=== PATIENT | female | born 1940 | race Caucasian/White ===

== ENCOUNTER 2018-08-01 10:43 | Inpatient (IN) ==
[2018-08-01] MEDS ORDERED: ZOFRAN IV ONE (11:41)
[2018-08-01] MEDS ORDERED: MORPHINE IV ONE (11:41)
[2018-08-01] MEDS ORDERED: NS 1,000 ML IV ONE (11:41)
--- NOTE | 2018-08-01 12:03 | Diag Imaging Result Doc PS360 ---
EXAM: CHEST-PORTABLE 08/01/2018 HISTORY: weakness TECHNIQUE: AP portable at 1149 COMMENT: There is atelectatic appearing opacity in the medial left lower lobe which was not apparent on 02/08/2016. There are linear fibrotic opacities present on the left which were present previously as well as the nodular opacity in the left upper lobe. IMPRESSION: New atelectasis left lower lobe. Electronically signed by Tyrell Fowler 08/01/2018 12:00 PM
[2018-08-01 12:14] LABS: BASO# 0.05 X1000 (0.0-0.2); BASO% 0.5 % (0.0-0.8); EOS# 0.09 X1000 (0.0-0.7); EOS% 0.9 % (0.0-10.0); HEMATOCRIT 30.1 % (37.0-47.0); HEMOGLOBIN 9.2 g/dL (12.0-16.0); IMM GRAN# 0.04 X1000 (0.0-0.04); IMM GRAN% 0.4 % (0.0-0.5); LYMPH# 1.09 X1000 (1.2-3.4); LYMPH% 10.5 % (20.5-51.1); MCH 30.3 PG (27-31); MCHC 30.6 g/dL (33-37); MONO# 1.38 X1000 (0.11-0.59); MONO% 13.2 % (1.7-9.3); MPV 9.3 FL (7.4-10.4); NEUT# 7.78 X1000 (1.4-6.5); NEUT% 74.5 % (42.2-75.2); PLT 509 X1000 (130-400); RBC 3.04 XMIL (4.2-5.4); RDW 12.7 % (11.5-14.5); WBC 10.43 X1000 (4.8-10.8)
[2018-08-01 12:26] LABS: ALBUMIN 3.5 g/dL (3.5-5.0); CALCIUM 8.7 mg/dL (8.8-10.2); CREATININE 1.3 mg/dL (0.5-0.9); POTASSIUM 4.2 mmol/L (3.5-5.1); TOTAL BILIRUBIN 0.2 mg/dL (0.20-1.00); TOTAL PROTEIN 6.9 g/dL (6.3-8.3)
--- NOTE | 2018-08-01 12:38 | EKG Report ---
Test Performed on : 08/01/2018 10:54:16 AM Test Reason : weakness Blood Pressure : / mmHG Vent. Rate : 068 BPM Atrial Rate : 068 BPM P-R Int : 230 ms QRS Dur : 078 ms QT Int : 402 ms P-R-T Axes : 073 001 -02 degrees QTc Int : 427 ms Sinus rhythm. with 1st degree AV block. Septal infarct , age undetermined Abnormal ECG When compared with ECG of 08-FEB-2016 09:19, AR interval has increased Septal infarct is now present Unconfirmed Result
[2018-08-01 12:43] LABS: URINE SOURCE CATH
[2018-08-01 12:43] LABS: INR 1.04; PROTIME 14.4 Seconds (11.0-16.0)
[2018-08-01 12:45] LABS: PTT 32.3 Seconds (22.3-41.8)
[2018-08-01 12:48] LABS: BILIRUBIN URINE NEGATIVE (NEGATIVE); BLOOD URINE NEGATIVE (NEGATIVE); COLOR YELLOW; GLUCOSE URINE NEGATIVE (NEGATIVE); KETONE URINE NEGATIVE (NEGATIVE); LEUKOCYTES URINE NEGATIVE (NEGATIVE); NITRITE URINE NEGATIVE (NEGATIVE); PROTEIN URINE TRACE mg/dL (NEGATIVE); SP GRAVITY URINE 1.008; TURBIDITY URINE CLEAR (CLEAR); UR EPITHELIAL CELLS <10 /HPF (<10); URINE BACTERIA NEGATIVE /HPF; URINE RBC <10 /HPF (<10); URINE WBC <10 /HPF (<10); UROBILINOGEN URINE NORMAL (NORMAL)
--- NOTE | 2018-08-01 14:01 | Diag Imaging Result Doc PS360 ---
EXAM: CT HEAD W/O CONTRAST 08/01/2018 HISTORY: weakness, near syncope on eliquis TECHNIQUE: This exam was performed using automated exposure control, adjustment of mA or kV according to patient size, and/or use of iterative reconstruction technique. COMMENT: There are calcifications in the globus pallidus and the right cerebellar hemisphere near the middle cerebellar peduncle and to lesser extent on the left side of the cerebellum in the same location. There are no previous studies available for comparison. There is no evidence of acute bleed or abnormal extra-axial fluid collection. There are calcifications in the internal carotid arteries bilaterally. There is a suprasellar soft tissue density mass on the left side adjacent to the internal carotid artery measuring 11 x 20 x 16 mm. This may represent an aneurysm. Further evaluation with MRI may be desirable. There is encephalomalacia present in the right occipital lobe. There is otherwise no evidence of mass effect. The visualized paranasal sinuses are clear. The calvarium is intact. IMPRESSION: No evidence of acute bleed. Left suprasellar mass possibly representing an aneurysm of the internal carotid artery. Electronically signed by Tyrell Fowler 08/01/2018 1:59 PM
--- NOTE | 2018-08-01 14:13 | Diag Imaging Result Doc PS360 ---
EXAM: CT ANGIOGRAM ABDOMEN 08/01/2018 HISTORY: bilateral LE weakness, evall for AAA/dissection TECHNIQUE: This exam was performed using automated exposure control, adjustment of mA or kV according to patient size, and/or use of iterative reconstruction technique. COMMENT: The current examination is compared with the previous study of 02/08/2016. 3-D MIPS were performed. There is bronchiectasis and fibrosis in both lower lobes. There are two separate nodules in the left adrenal gland which were also present at the time the previous study. There are multiple renal cysts. There has been cholecystectomy. There is no evidence of abdominal aortic aneurysm or dissection. The mesenteric and renal arteries are patent. There is some heavy calcification of the ostium of the left renal artery. There is a fairly large amount of stool in the sigmoid colon. There is diverticulosis without definite diverticulitis. There is stool throughout the transverse colon. There is marked disc bulge at the L2-3 level producing a moderate degree of spinal stenosis. There may be protrusion of the nucleus pulposis on the right. There is posterior osteophyte formation at the L5-S1 level. IMPRESSION: No evidence of abdominal aortic aneurysm or dissection. Both common, external iliac, common femoral arteries are patent. Degenerative disc disease in the lumbar spine particularly at L2-3 with moderate spinal stenosis. Electronically signed by Tyrell Fowler 08/01/2018 2:10 PM
--- NOTE | 2018-08-01 15:47 | PROVIDER DOCUMENTATION ---
This chart was entered by Kizzy Rodarte Scribe, acting as scribe for Pola Haynes MD. HPI-Musculoskeletal Pain/Inj - GENERAL Chief Complaint: Extremity Pain Stated Complaint: GENERALIZED WEAKNESS Time Seen by Provider: 08/01/18 11:07 Source: patient, EMS - HX OF PRESENT ILLNESS-MUSKULOSKELTAL Nature of Presenting Problem: 78 yowf presents to the ed with c/o rt leg pain. pt sts last night she slept in her recliner and this am she had a hard time getting up. once up she went to the toilet using her walker and sat down to urinate. pt once she was done and saw she could not get up. pt has noted weakness on exam in BLE and non pitting 4 + edema to BLE. pt has hx of clots and sts is on blood thinners now. pt lso c/o abdominal pain suprapubic RLQ and LLQ and sts has not been urinationg as much as she normally does Quality of Pain: reports: fullness (heaviness) Severity in ED: moderate Onset/Duration: this morning Timing: still present Modifying Factors: improves with: immobilization. worse with: movement, palpation Any recent injury?: No Locality of Occurance: Home Similar Symptoms Previously?: Yes Recently seen or treated by another doctor?: No Review of Systems - Adult - REVIEW OF SYSTEMS - ADULT Constitutional: denies: chills, fever Eyes: denies: blurred vision, double vision Ears, Nose, Mouth & Throat: reports: no symptoms reported Cardiovascular: denies: chest pain, palpitations Respiratory: reports: no symptoms reported Gastrointestinal: reports: see HPI, abdominal pain. denies: diarrhea, nausea, vomiting Genitourinary: reports: see HPI, urinary retention Musculoskeletal: reports: see HPI, joint pain, muscle weakness (BLE edema), other (BLE edema 4+) Integumentary: reports: no symptoms reported Neurological: denies: dizziness/vertigo, headache/migraines, slurred speech Psychiatric: reports: no symptoms reported Endocrine: reports: no symptoms reported Hematologic/Lymphatic: reports: see HPI, blood clots, easy bruising Allergic/Immunologic: reports: no symptoms reported All Other Systems: Reviewed and Negative Past History - Adult - PAST MEDICAL HISTORY-ADULT Review of Records: reports: Old Records Reviewed, Nursing Assessment Review, Medications Reviewed, Social history reviewed & non-contributory. 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 Other Conditions: reports: denies history - PRIOR SURGERIES/PROCEDURES Surgical/Procedure History: reports: cholecystectomy, hysterectomy - IMMUNIZATION STATUS Childhood Immunizations: See Nurse Assessment Flu Vaccine: See Nurse Assessment - FAMILY HISTORY Family History: reviewed, not pertinent - SOCIAL HISTORY Smoking: denies Substance Use: denies Alcohol Use Frequency: never Living Situation: alone Physical Exam-Injury Related - Physical Exam-Injury Related Initial Vital Signs Reviewed: Yes General Appearance: alert, mild distress, obese Eyes: PERRL/EOMI, pink conjunctivae Head, Ears, Nose, Mouth & Throat: moist mucous membranes, normal ENT inspection Neck: non-tender, full range of motion, normal inspection Respiratory: chest non-tender, lungs clear, normal breath sounds Cardiovascular: normal peripheral pulses, regular rate, rhythm Chest/Breast: deferred Abdominal Exam: normal bowel sounds, soft, distended, guarding, tenderness ( suprapubic RLQ and LLQ), other (well healed scar from past sx) Female Genitalia/Pelvic Exam: deferred Rectal Exam: deferred Hemoccult Exam: deferred Lymphatic: no adenopathy Back Exam: normal inspection, no CVA tenderness, no vertebral tenderness Extremity: pelvis stable, erythema (BUE), pedal edema, swelling (BLE), tenderness (RLE), other (pt has BLE weakness). negative: normal gait, deformity Integumentary: normal color, warm/dry Neurologic: motor weakness (BLE). negative: facial droop, focal weakness, sensory deficit Psych/Mental Status: normal mood/affect, normal thought content, normal thought process, oriented x 3 - Glascow Coma Score Best Eye Response (Weld): (4) open spontaneously Best Verbal Response (Carl): (5) oriented Best Motor Response (Weld): (6) obeys commands Carl Total: 15 Progress - PLAN OF CARE/RESULTS Progress/Plan/Lab Results: Vital Signs - 8 hr 08/01/18 10:47 08/01/18 13:35 08/01/18 14:02 Temperature 98.9 F Pulse Rate 69 74 65 Respiratory Rate 18 27 H 15 Blood Pressure 140/71 137/69 130/67 O2 Sat by Pulse Oximetry 97 97 96 08/01/18 12:33 Influenza Screen - Final Nasopharyngeal Laboratory Results - last 24 hr 08/01/18 08/01/18 08/01/18 10:55 10:55 10:55 WBC 10.43 RBC 3.04 L Hgb 9.2 L Hct 30.1 L MCV 99.0 MCH 30.3 MCHC 30.6 L RDW Std Deviation 12.7 Plt Count 509 H MPV 9.3 Immature Gran % (Auto) 0.4 Neut % (Auto) 74.5 Lymph % (Auto) 10.5 L [place] % (Auto) 13.2 H Eos % (Auto) 0.9 Baso % (Auto) 0.5 Immature Gran # (Auto) 0.04 Neut # (Auto) 7.78 H Lymph # (Auto) 1.09 L [place] # (Auto) 1.38 H Eos # (Auto) 0.09 Baso # (Auto) 0.05 PT INR PTT (Actin FS) Sodium 139 Potassium 4.2 Chloride 99 Carbon Dioxide 25 Anion Gap 15 BUN 29 H Creatinine 1.3 H Estimated GFR/1.73 m2 40 BUN/Creatinine Ratio 22 Glucose 210 H POC Glucose Calculated Osmolality 290 Calcium 8.7 L Magnesium 2.0 Total Bilirubin 0.20 AST 10 ALT 7 L Alkaline Phosphatase 132 H Creatine Kinase 32 Troponin T Sqy-G-Flzottyfelf Pept Total Protein 6.9 Albumin 3.5 Globulin 3.4 Albumin/Globulin Ratio 1.0 Plasma Lactate TSH 1.70 Urine Source Urine Color Urine Turbidity Urine pH Ur Specific Pierson Urine Protein Ur Glucose (Stick) Ur Ketones (Stick) Urine Blood Urine Nitrite Urine Bilirubin Urobilinogen Dipstick Urine Leukocytes Urine WBC (Auto) Urine RBC (Auto) U Epithel Cells (Auto) Urine Bacteria (Auto) 08/01/18 08/01/18 08/01/18 10:55 10:55 10:55 WBC RBC Hgb Hct MCV MCH MCHC RDW Std Deviation Plt Count MPV Immature Gran % (Auto) Neut % (Auto) Lymph % (Auto) [place] % (Auto) Eos % (Auto) Baso % (Auto) Immature Gran # (Auto) Neut # (Auto) Lymph # (Auto) [place] # (Auto) Eos # (Auto) Baso # (Auto) PT 14.4 INR 1.04 PTT (Actin FS) 32.3 Sodium Potassium Chloride Carbon Dioxide Anion Gap BUN Creatinine Estimated GFR/1.73 m2 BUN/Creatinine Ratio Glucose POC Glucose Calculated Osmolality Calcium Magnesium Total Bilirubin AST ALT Alkaline Phosphatase Creatine Kinase Troponin T Kjw-M-Cdwjylmufxy Pept 330 Total Protein Albumin Globulin Albumin/Globulin Ratio Plasma Lactate 1.1 TSH Urine Source Urine Color Urine Turbidity Urine pH Ur Specific [place]erson Urine Protein Ur Glucose (Stick) Ur Ketones (Stick) Urine Blood Urine Nitrite Urine Bilirubin Urobilinogen Dipstick Urine Leukocytes Urine WBC (Auto) Urine RBC (Auto) U Epithel Cells (Auto) Urine Bacteria (Auto) 08/01/18 08/01/18 08/01/18 10:55 12:25 12:32 WBC RBC Hgb Hct MCV MCH MCHC RDW Std Deviation Plt Count MPV Immature Gran % (Auto) Neut % (Auto) Lymph % (Auto) [place] % (Auto) Eos % (Auto) Baso % (Auto) Immature Gran # (Auto) Neut # (Auto) Lymph # (Auto) [place] # (Auto) Eos # (Auto) Baso # (Auto) PT INR PTT (Actin FS) Sodium Potassium Chloride Carbon Dioxide Anion Gap BUN Creatinine Estimated GFR/1.73 m2 BUN/Creatinine Ratio Glucose POC Glucose 205 H Calculated Osmolality Calcium Magnesium Total Bilirubin AST ALT Alkaline Phosphatase Creatine Kinase Troponin T 0.016 Zja-R-Ptkunnizzhd Pept Total Protein Albumin Globulin Albumin/Globulin Ratio Plasma Lactate TSH Urine Source CATH Urine Color YELLOW Urine Turbidity CLEAR Urine pH 8.0 Ur Specific [place] 1.008 Urine Protein TRACE A Ur Glucose (Stick) NEGATIVE Ur Ketones (Stick) NEGATIVE Urine Blood NEGATIVE Urine Nitrite NEGATIVE Urine Bilirubin NEGATIVE Urobilinogen Dipstick NORMAL Urine Leukocytes NEGATIVE Urine WBC (Auto) <10 Urine RBC (Auto) <10 U Epithel Cells (Auto) <10 Urine Bacteria (Auto) NEGATIVE Orders Category Date Time Status Bladder Scan and Record Result ORDERED Care 08/01/18 11:37 Active Finger Stick Blood Sugar (ED) DIRECTED Care 08/01/18 11:37 Active Nursing- Obtain EKG once Care 08/01/18 11:40 Active Straight Catheterization ORDERED Care 08/01/18 11:37 Active CHEST-PORTABLE [RAD] Stat Exams 08/01/18 11:[address] HEAD W/O CONTRAST [CT] Stat Exams 08/01/18 11:39 Completed CTA [CT ANGIOGRAM ABDOMEN] [CT] Stat Exams 08/01/18 11:40 Completed BLOOD CULTURE [BLDCUL] Stat Lab 08/01/18 14:55 Received CBC WITH ELECTRONIC DIFF [HEME] Stat Lab 08/01/18 10:55 Completed CK PROFILE [SP CHEM] Stat Lab 08/01/18 10:55 Completed COMPREHENSIVE METABOLIC PANEL [CHEM] Stat Lab 08/01/18 10:55 Completed INFLUENZA SCREEN A/B Stat Lab 08/01/18 12:33 Completed LACTATE, PLASMA [CHEM] Stat Lab 08/01/18 10:55 Completed MAGNESIUM [CHEM] Stat Lab 08/01/18 10:55 Completed PRO B-NATRIURETIC PEPTIDE Stat Lab 08/01/18 10:55 Completed PROTIME WITH INR [COAG] Stat Lab 08/01/18 10:55 Completed PTT [COAG] Stat Lab 08/01/18 10:55 Completed TROPONIN T Stat Lab 08/01/18 10:55 Completed TSH Stat Lab 08/01/18 10:55 Completed URINALYSIS W/POSS RFLX CULT [URINALYSIS] Stat Lab 08/01/18 12:25 Completed 0.9% Sodium Chloride Inj [Ns] 1,000 ml Med 08/01/18 11:41 Active IV 75 mls/hr Morphine Med 08/01/18 11:41 Discontinued 2 mg IV NOW ONE Ondansetron [Zofran] Med 08/01/18 11:41 Discontinued 4 mg IV NOW ONE EKG [EKG] Stat Ther 08/01/18 11:37 Draft Result Diagrams: 08/01/18 10:55 08/01/18 10:55 - REASSESSMENT Reassessment #1 Time Reassessed: 11:51 (pt is resting in bed with daughter at bedside) Status: unchanged - EKG 1 Time of EKG reading by physician:: 10:54 EKG Read and Signed by:: Pola Haynes EKG Interpretation (*Must complete 3 of following elements*): Abnormal Rate: 68 Rhythm: NSR 1 degree AV block [place]: normal QRS: poor R wave progression GA Interval: normal Prior EKG Comparison: no prior EKG Comments: artifact present/septal infarct, age undetermined - XRAY 1 XRAY: Bilateral XRAY Study: Chest Impression: See EMR Report (EXAM: CHEST-PORTABLE 08/01/2018 HISTORY: weakness TECHNIQUE: AP portable at 1149 COMMENT: There is atelectatic appearing opacity in the medial left lower lobe which was not apparent on 02/08/2016. There are linear fibrotic opacities present on the left which were present previously as well as the nodular opacity in the left upper lobe. IMPRESSION: New atelectasis left lower lobe. Electronically signed by Tyrell Fowler 08/01 12:00 PM 08/01/18 1200 Interpreting Physician: Tyrell Fowler MD Dictated Date/Time: 08/01/18 3449 cc: Pola Haynes MD; Juan Manuel Harris MD) - CT/MRI 1 CT Study: Head Impression: Abnormal, See EMR Report ( EXAM: CT HEAD W/O CONTRAST 08/01/2018 HISTORY: weakness, near syncope on eliquis TECHNIQUE: This exam was performed using automated exposure control, adjustment of mA or kV according to patient size, and/or use of iterative reconstruction technique. COMMENT: There are calcifications in the globus pallidus and the right cerebellar hemisphere near the middle cerebellar peduncle and to lesser extent on the left side of the cerebellum in the same location. There are no previous studies available for comparison. There is no evidence of acute bleed or abnormal extra-axial fluid collection. There are calcifications in the internal carotid arteries bilaterally. There is a suprasellar soft tissue density mass on the left side adjacent to the internal carotid artery measuring 11 x 20 x 16 mm. This may represent an aneurysm. Further evaluation with MRI may be desirable. There is encephalomalacia present in the right occipital lobe. There is otherwise no evidence of mass effect. The visualized paranasal sinuses are clear. The calvarium is intact. IMPRESSION: No evidence of acute bleed. Left suprasellar mass possibly representing an aneurysm of the internal carotid artery. Electronically signed by Tyrell Fowler 08/01/2018 1:59 PM 08/01/18 1359 Interpreting Physician: Tyrell Fowler MD Dictated Date/Time: 0905) MRI Study: Abdomen Impression: Abnormal, See EMR Report (Signed EXAM: CT ANGIOGRAM ABDOMEN 08/01/2018 HISTORY: bilateral LE weakness, evall for AAA/dissection TECHNIQUE : This exam was performed using automated exposure control, adjustment of mA or kV according to patient size, and/or use of iterative reconstruction technique. COMMENT: The current examination is compared with the previous study of 02/07. 3-D MIPS were performed. There is bronchiectasis and fibrosis in both lower lobes. There are two separate nodules in the left adrenal gland which were also present at the time the previous study. There are multiple renal cysts. There has been cholecystectomy. There is no evidence of abdominal aortic aneurysm or dissection. The mesenteric and renal arteries are patent. There is some heavy calcification of the ostium of the left renal artery. There is a fairly large amount of stool in the sigmoid colon. There is diverticulosis without definite diverticulitis. There is stool throughout the transverse colon. There is marked disc bulge at the L2-3 level producing a moderate degree of spinal stenosis. There may be protrusion of the nucleus pulposis on the right. There is posterior osteophyte formation at the L5-S1 level. IMPRESSION : No evidence of abdominal aortic aneurysm or dissection. Both common, external iliac, common femoral arteries are patent. Degenerative disc disease in the lumbar spine particularly at L2-3 with moderate spinal stenosis. 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 Take two Tums chewables twice daily for a couple of weeks, then recheck your calcium level. Your CT scan showed an abnormality around the left internal carotid artery, so Dr. Kimberly newell schedule you an outpatient MRI of your brain and neck to make sure there is not an aneurysm of the artery. ED Follow Up Instructions: You have been treated by a care provider in the Emergency Department. These instructions are being provided to you so you can have an understanding of how to care for yourself upon discharge. Upon discharge from the Emergency Department, you are responsible for making arrangements for follow-up care by a physician of your choice. Take all prescribed medications as directed. Return to the Emergency Department immediately for any new or worsening symptoms. You may call the Physician Referral phone number at [phone] to obtain a list of Physicians who are taking new patients. Referrals and Follow-Ups: Juan Manuel Harris MD [Primary Care Provider] - Call for Appoint. 1-2days (Call tomorrow for appointment time.) Discharge Education: Weakness, Hypocalcemia, Adult, Anemia - Critical Care Note This patient required my direct & personal management of CC.: No Attestation - Physician/ STEPHANY Attestation Patient care was provided by Advanced Practice Provider:: No The physician spent face to face time with patient:: Yes Advanced Practice Provider documentation review:: Supervising physician onsite and consulted in the evaluation and care of this patient. The physician did have a face to face encounter with the patient. This chart was documented by the indicated scribe, (Kizzy Rodarte Scribe) and accurately reflects the services I performed and decisions made by me, Pola Haynes MD, as attested by the provider's signature.
--- NOTE | 2018-08-01 19:30 | Diag Imaging Result Doc PS360 ---
EXAM: ABDOMEN FLAT/UPRIGHT - 08/01/2018 HISTORY: pain TECHNIQUE: Supine and upright abdomen COMPARISON: None. FINDINGS: The bowel gas pattern appears nonspecific and nonobstructive. There is small bowel gas visible but there is no substantial gaseous small bowel distention identified. There is a moderate amount of retained fecal debris in the colon. There are surgical clips at the right upper quadrant. There is intravenous contrast from earlier CT scan in the urinary bladder. IMPRESSION: Nonspecific bowel gas pattern. Apparent constipation. Electronically signed by Alejandro Hale 08/01/2018 7:27 PM
--- NOTE | 2018-08-01 20:17 | HISTORY AND PHYSICAL ---
CHIEF COMPLAINT: Generalized weakness, mostly lower extremities and abdominal pain. 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 Presented to the emergency department with a chief complaint of right leg pain and weakness. Apparently, this patient slept on a recliner the whole night and this morning she was not able to walk properly and actually she was not able to get up from that chair like she used to do before. Then she went to the bathroom. She sat on the toilet and she was not able to stand up, so she called I think 911 or the fire fighters for help. She was noted to have weakness bilaterally. Apparently, she was doing good yesterday. Her strength on the right side is decreased compared with the left side. Her strength at the level of the lower extremities on the right side is decreased compared with the left side, but both are decreased maybe 2-3/5. She is not able to walk by herself. Laboratory did not show leukocytosis. Hemoglobin is 9.2, but it has been around that before. Platelet count a little bit elevated, but also was a little bit elevated in 2016. She does have an acute kidney injury. Glucose level is elevated at 210 as well as the alkaline phosphatase. On my physical exam, she seems to be a little bit dehydrated. Her abdomen is tender, mostly in the right lower area. She denies nausea, vomiting, and actually she is asking for food. No rebound. No signs of peritoneal irritation. As per the patient, she has been a little bit constipated, but she denies nausea, vomiting. No headache. No shortness of breath. No chest pain. When I move her right leg, she complains about pain at the level of the inguinal area and lower abdominal area and that is not the case on the left lower extremity. I will admit this patient. I will get an abdominal ultrasound and I will get an abdominal x-ray. 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 Will ask for an MRI of the head at this time without contrast because of her acute kidney injury. Will hold any nephrotoxic medication including her furosemide, Losartan and hydrochlorothiazide. I will put her on some IV fluids. Her baseline creatinine in 2016 was 0.8 to 0.9 and today it is 1.3. Again, she looks a little bit dehydrated. REVIEW OF SYSTEMS: All the 14 points of review of systems were reviewed. All of the negative except as per HPI. PAST MEDICAL HISTORY: Previous history of DVT and current history of DVT on April 2018 on current treatment with Eliquis. Diabetes, hypertension, lower extremity edema bilaterally which is chronic, diverticulosis, possible dementia. PAST SURGICAL HISTORY: Hysterectomy. Cyst drainage. A left breast cyst that has been drained and cholecystectomy in 2016. SOCIAL HISTORY: She denies alcohol, drugs, and smoking history. She lives by herself and her a few years ago. ALLERGIES: As per the patient, she is allergic to Benadryl. This patient has been receiving blood before. FAMILY HISTORY: This patient has a strong family history for cardiomyopathy. Actually, she does have 2 brothers that at the age of 30 and 40. Her sister has a cardiomyopathy and she is around 60 and her mother at the age of 65. She does have a brother with diabetes and a daughter with breast cancer. MEDICATIONS: Eliquis 5 mg p.o. b.i.d., glipizide 10 mg p.o. b.i.d. Losartan/hydrochlorothiazide 100/25, one tablet p.o. daily. Mirtazapine 15 mg p.o. daily. Allopurinol 100 mg p.o. daily, Lasix 40 mg p.o. b.i.d., potassium chloride 20 mg p.o. daily and metformin 500 mg p.o. b.i.d. PHYSICAL EXAMINATION: VITAL SIGNS: Temperature 98.5, pulse 64, respiratory rate 18, blood pressure 124/62, oxygen saturation 95% on room air. HEENT: Head normocephalic. No trauma. PERRLA. NECK: Supple. No JVD. No masses. Central trachea. CHEST: Clear to auscultation. No wheezing. No rales. ABDOMEN: Soft. Generalized tenderness to palpation mostly at the level of the right lower quadrant and periumbilical area. No signs of peritoneal irritation. The abdomen seems to be a little bit distended, but she is passing gas and having small bowel movements. EXTREMITIES: 3 to 4+ pitting edema. No clubbing. No cyanosis. NEUROLOGICAL: The patient is alert and oriented x2. She is not oriented to time. She is not able to say who is the workforce development vice president. She is able to recognize family members at the bedside and follow commands. She does have bilateral lower extremity weakness and I feel it is proximal weakness. Sensation is intact. LABORATORY: WBC 10.4, hemoglobin 9.2, hematocrit 30.1. Platelets 509. Sodium 139, potassium 4.2, chloride 99, bicarbonate 25, BUN 29, creatinine 1.3, glucose 210. Calcium 8.7, AST 10, ALT 7, alkaline phosphatase 132. Troponin -0.016, albumin 3.5, TSH 1.7. Lactate level is normal at 1.1. Urinalysis negative. ASSESSMENT AND PLAN: 1. Lower extremity weakness. Right side is weaker compared with the left side, maybe 2-3/5 strength. Probably this is proximal. I will probably get Neurology Department to evaluate this patient in the morning. 2. Abdominal pain. This patient denies diarrhea, but she has been apparently constipated. I will for now, just put this patient on IV fluids, and I will wait for the abdominal ultrasound and the abdominal x-ray to see if we need to put this patient on stool softeners. As per the patient, she has been having bowel movements with no melena, no blood, but small amount. 3. Acute kidney injury. Her last lab work here in the hospital was in 2016 and the creatinine was between 0.8 and 0.9. Today it is 1.3, and she seems to be dehydrated. It looks like she has not been eating or drinking today, so I will put this patient on IV fluids, and I will re- evaluate her in the morning. 4. Dehydration, as above. 5. Hypertension. Blood pressure has been stable. At this moment, she is around 124/62, I have held. The blood pressure medication because of her acute kidney injury. 6. Type 2 diabetes. I will put this patient on sliding scale insulin and pattern blood sugar. I will ask also for a hemoglobin A1c. 7. We have a CT scan report that showed a possible suprasellar mass representing an aneurysm of the internal carotid artery. We will have requested an MRI of the head without contrast due to her kidney dysfunction. We will monitor that. 8. Deep vein thrombosis involving the left peroneal vein. That was diagnosed on 04/19/2018 and she has been placed on Eliquis. I will continue with the same management. 9. Bilateral lower extremity edema which is chronic. For now, we will monitor. 10. Possible dementia. For now, will monitor. I will continue with her home medications. 11. Gout. No symptoms of gout at this moment. We will continue with allopurinol 100 mg p.o. daily. cc: Josesito Frias MD
[2018-08-01] MEDS: HUMULIN R SUBQ SCH (21:00)
[2018-08-01] MEDS: ELIQUIS PO SCH (21:45)
[2018-08-02] MEDS: TYLENOL PO PRN (00:27)
[2018-08-02] MEDS: NS 1,000 ML IV SCH ×2 (02:42→23:09)
[2018-08-02] MEDS: HUMULIN R SUBQ SCH ×4 (06:09→23:14)
[2018-08-02 08:18] LABS: CALCIUM 8.7 mg/dL (8.8-10.2); CREATININE 1.2 mg/dL (0.5-0.9); TOTAL BILIRUBIN 0.22 mg/dL (0.20-1.00)
[2018-08-02 08:27] LABS: BASO# 0.03 X1000 (0.0-0.2); BASO% 0.3 % (0.0-0.8); EOS# 0.13 X1000 (0.0-0.7); EOS% 1.4 % (0.0-10.0); HEMATOCRIT 28.1 % (37.0-47.0); HEMOGLOBIN 8.5 g/dL (12.0-16.0); IMM GRAN# 0.03 X1000 (0.0-0.04); IMM GRAN% 0.3 % (0.0-0.5); LYMPH# 1.44 X1000 (1.2-3.4); LYMPH% 15.1 % (20.5-51.1); MCH 30.5 PG (27-31); MCHC 30.2 g/dL (33-37); MCV 100.7 FL (81-99); MONO% 15.8 % (1.7-9.3); NEUT# 6.39 X1000 (1.4-6.5); NEUT% 67.1 % (42.2-75.2); PLT 467 X1000 (130-400); RBC 2.79 XMIL (4.2-5.4); RDW 12.6 % (11.5-14.5); WBC 9.52 X1000 (4.8-10.8)
[2018-08-02 08:35] LABS: HEMOGLOBIN A1C 12.1 % (4.8-6.0)
--- NOTE | 2018-08-02 08:55 | Diag Imaging Result Doc PS360 ---
US ABDOMEN-COMPLETE - 08/02/2018 INDICATION: Abdominal pain COMPARISON: 01/27/2016 FINDINGS: The gallbladder is not visible. The liver, pancreas, and spleen remain normal. There is a stable right renal cyst measuring 3 cm. There is a small, stable left renal cyst measuring 1.3 cm. Aorta, IVC, and main portal vein are patent. No free fluid. IMPRESSION: Nonvisualization of the gallbladder, indeterminate. Electronically signed by Nathen Lafleur 08/02/2018 8:52 AM
[2018-08-02] MEDS: REMERON PO SCH (09:31)
[2018-08-02] MEDS: ELIQUIS PO SCH ×2 (09:31→23:08)
[2018-08-02] MEDS: ZYLOPRIM PO SCH (09:31)
[2018-08-02] MEDS: MIRALAX PO SCH ×2 (09:37→23:08)
--- NOTE | 2018-08-02 10:35 | PROGRESS NOTE ---
DATE: 08/02/2018 SUBJECTIVE: This patient is still complaining of abdominal discomfort and lower extremity weakness. X-ray showed constipation an a diffuse nonspecific bowel gas pattern. I will start this patient on MiraLAX twice a day to see how she does. As per the patient, she tried a bowel movement today, but she did just a little bit. Hopefully, with the stool softener, this will be better. OBJECTIVE: Vital Signs: Temperature 98 degrees, pulse 66, respiratory rate 18 , blood pressure 129/60, oxygen saturation 98 on room air. HEENT: Head normocephalic. No trauma. PERRLA. Neck: Supple. No JVD. No masses. Central trachea. Chest: Clear to auscultation. No wheezing. No rales. Abdomen: Soft, generalized tenderness to palpation mostly at the level of the right lower quadrant and periumbilical area. No signs of peritoneal irritation. Extremities: 3+ non-pitting edema. No clubbing. No cyanosis. Neurological: The patient is alert and oriented x3. She is complaining of lower extremity weakness mostly on the right side, maybe 2 to 3/ 5. LABORATORY DATA: WBC 9.5, hemoglobin 8.5, hematocrit 28.1, platelets 467,000. Sodium 142, potassium 4, chloride 107, bicarbonate 31, BUN 24, creatinine 1.2, glucose 125, calcium 8.7. Hemoglobin A1c 12.1. ASSESSMENT AND PLAN: 1. Lower extremity weakness. Her right side is weaker compared with the left side, maybe 2/5 to 3/5 strength. I will ask for an x-ray of the hip to rule out osteoarthritis. I am not quite sure why this patient has weakness, and actually I believe is a proximal muscle weakness. I will get Neurology department to evaluate the patient. Yesterday a CT angiogram of the abdomen was performed. There is no evidence of abdominal aortic aneurysm or dissection. Both common femoral, external iliac, common femoral arteries are patent. 2. Degenerative disk he sees in the lumbar spine, particularly at L2-3 with moderate spinal stenosis. Again, I have consulted Neurology Department. Abdominal x-ray showed a diffuse gas pattern and constipation. 3. Abdominal pain. Like I mentioned before, x-ray showed constipation and diffuse gas pattern. There is not an abdominal aortic aneurysm and/or stenosis. The arteries are patent. There is a moderate stenosis at the level of the L2-3. 4. Acute kidney injury, stable. Creatinine decreased from 1.3 to 1.2. Probably this is her new baseline. 5. Dehydration, resolved. 6. Hypertension, stable. Continue with same management. 7. Type 2 diabetes, uncontrolled. Hemoglobin A1c is 12.1. I will continue with the sliding scale insulin and pattern of blood sugar. 8. We have a CT scan that reported the possibility of suprasellar mass representing an aneurysm of the internal carotid artery. We have requested an MRI without contrast due to her kidney dysfunction. We will monitor that. 9. Deep vein thrombosis (DVT) involving the left peroneal vein. Diagnosed on and she has been placed on Eliquis. I will continue with the same management. 10. Bilateral lower extremity edema which is chronic. For now, we will monitor. 11. Possible dementia. For now, we will monitor as well. Continue with home medications. 12. Gout. No symptoms. Continue with allopurinol daily. 13. Constipation. I have placed this patient on MiraLAX twice a day. Let us see how she does. cc: Josesito Frias MD MTDD
--- NOTE | 2018-08-02 12:46 | Diag Imaging Result Doc PS360 ---
EXAM: MRA BRAIN W/O CONTRAST 08/02/2018 HISTORY: R/O carotid mass/aneurysm TECHNIQUE: 3-D [id number] SPGR fat sat with 3-D MIPS. COMMENT: There is no evidence of aneurysm or major branch occlusion. The extra-axial mass which was described on the CT scan of 08/01/2018 is again noted and may in fact arise from the sella or diaphragma sella on the left side. Further evaluation with MRI with and without gadolinium is recommended. IMPRESSION: No evidence of aneurysm. Extra-axial parasellar mass. Electronically signed by Tyrell Fowler 08/02/2018 12:43 PM
--- NOTE | 2018-08-02 12:56 | Diag Imaging Result Doc PS360 ---
XRAY HIP W/PELVIS BILAT 3-4VWS - 08/02/2018 INDICATION: Bilateral hip pain TECHNIQUE: Three views COMPARISON: None FINDINGS: Bones are intact and normally aligned. Hip joint spaces are preserved. There is severe degeneration at the symphysis pubis. There is mild degenerative calcifications of the greater trochanters and iliac wings. IMPRESSION: Degenerative changes. Electronically signed by Nathen Lafleur 08/02/2018 12:54 PM
--- NOTE | 2018-08-02 14:40 | CONSULTATION ---
DATE OF CONSULTATION: 08/02/2018 NEUROLOGY CONSULT: HISTORY OF PRESENT ILLNESS: Ms. Tripathi is 78 years old, and she reports noticing trouble with her right leg several days ago, gradually worse over a few days to the point she thought she could not stand, could not bear weight, could not walk because of discomfort in the right leg and a sense that her right leg would not hold her up. She believes that has been about the same over the last day in the hospital, no significant improvement or deterioration. Discomfort was in the groin, knee, and ankle. Her report to me is that she did not have any trouble with her left leg. She did not lose bowel or bladder control. She specifically did not have radicular pain in her back. She did not have any injury to her right leg or back recently. She has never had diagnosed stroke or other neurologic event. She has never been unable to stand because of problems with the right leg before. Workup here includes lab showing CK 32 and then 40. She has moderately elevated blood sugars. WBC count is normal. There is mild anemia. Remainder of her lab is unremarkable from neurologic standpoint. She has been afebrile. Noncontrast CT shows left suprasellar mass , raising question of aneurysm. Daughter at the bedside reports definite cognitive impairment progressing in recent months, possibly present as long as a year. She has also had some depression since . She has long-standing diabetes mellitus and some numbness in the feet. She has had some attacks of gout but has not recognized that recently. PHYSICAL EXAMINATION: On exam, Ms. Tripathi is awake, alert, attentive, oriented, appropriate. Speech is not dysarthric. Language function is intact. Memory is good for remote events. I did not test her cognitive function thoroughly. Head and neck are unremarkable. Visual dill are full, tested by confrontational finger counting. Extraocular movements are full. Facial motility is symmetric. Tongue is midline. She can hear. Shoulder shrug is equal. Strength is normal in the arms. She did well on [id number] testing. She reports discomfort in the legs, but was able to demonstrate at least 3/5 power in the iliopsoas bilaterally. Strength is 4+/5 to 5/5 distally in each leg. Tone is symmetric in the legs. Proprioception is good at the great toe MTP joint bilaterally. She reports diminished pinprick and light touch appreciation in a stocking pattern bilaterally, extending equally on the left and right to about the mid duarte level. Reflexes are 1+ at the knees and absent at the ankles. Plantar response is silent bilaterally. Straight leg raising is unremarkable bilaterally. Hip rotation is uncomfortable on the right more than the left. She also has some discomfort to palpation of the knees and ankles, more on the right. IMPRESSION: 1. Moderate proximal leg weakness and clinical evidence of peripheral neuropathy. I presume she has longstanding diabetic neuropathy. Her recent increased gait difficulty could be multifactorial with contributions from degenerative joint problems, and I wonder about gout. Another option would be diabetic radiculoneuritis with proximal leg weakness due to upper lumbar radiculitis. I note her A1c was 12.1%, which is consistent with poorly controlled blood sugars, and that would predispose her to diabetic radiculoneuritis. We might consider EMG and nerve conduction electively, but I do not think that would change advisor urgently. I do not have any other suggestion right now. I encouraged her to be careful. Physical therapy might be helpful. 2. There is reported imaging evidence of suprasellar mass. Brain MRA has been done, and I will check on that. Eventually, CT angiogram might be more helpful, or we might get a brain MRI. Eventually, she might need referral for further evaluation if we can confirm presence of aneurysm. 3. Baseline cognitive impairment. I think it would be reasonable to consider adding cholinesterase inhibitor. I would not do that immediately, but let her get over her other problems first. Thanks for asking Neurology to see Ms. Tripathi. cc: MD COARZON Andrade III
[2018-08-03] MEDS: HUMULIN R SUBQ SCH ×4 (06:30→22:03)
[2018-08-03 07:31] LABS: AGAP 10; ALB/GLOB RATIO 0.9; ALBUMIN 2.6 g/dL (3.5-5.0); ALKALINE PHOSPHATASE 103 U/L (32-104); BUN 18 mg/dL (8-22); CALCIUM 8.1 mg/dL (8.8-10.2); CHLORIDE 109 mmol/L (98-107); COSMO 287; CREATININE 1.2 mg/dL (0.5-0.9); ESTIMATED GFR 43; GLUCOSE 95 mg/dL (70-104); GOT 9 U/L (10-30); GPT 6 U/L (10-36); POTASSIUM 3.4 mmol/L (3.5-5.1); SODIUM 143 mmol/L (136-145); TCO2 24 mmol/L (25-35); TOTAL BILIRUBIN < 0.15 mg/dL (0.20-1.00); TOTAL PROTEIN 5.4 g/dL (6.3-8.3)
[2018-08-03 07:32] LABS: BASO# 0.03 X1000 (0.0-0.2); BASO% 0.3 % (0.0-0.8); EOS# 0.12 X1000 (0.0-0.7); EOS% 1.2 % (0.0-10.0); HEMATOCRIT 26.9 % (37.0-47.0); HEMOGLOBIN 8.2 g/dL (12.0-16.0); IMM GRAN# 0.02 X1000 (0.0-0.04); IMM GRAN% 0.2 % (0.0-0.5); LYMPH# 1.35 X1000 (1.2-3.4); LYMPH% 13.2 % (20.5-51.1); MCH 30.6 PG (27-31); MCHC 30.5 g/dL (33-37); MCV 100.4 FL (81-99); MONO# 1.53 X1000 (0.11-0.59); MPV 8.8 FL (7.4-10.4); NEUT# 7.18 X1000 (1.4-6.5); NEUT% 70.1 % (42.2-75.2); PLT 449 X1000 (130-400); RBC 2.68 XMIL (4.2-5.4); RDW 12.5 % (11.5-14.5); WBC 10.23 X1000 (4.8-10.8)
[2018-08-03] MEDS ORDERED: KLOR-CON PO ONE (08:53)
[2018-08-03] MEDS: MIRALAX PO SCH ×2 (09:05→22:03)
[2018-08-03] MEDS: REMERON PO SCH (09:06)
[2018-08-03] MEDS: ZYLOPRIM PO SCH (09:06)
[2018-08-03] MEDS: ELIQUIS PO SCH ×2 (09:07→22:02)
[2018-08-03] MEDS: 1/2 NS 1,000 ML IV SCH ×2 (09:19→22:15)
--- NOTE | 2018-08-03 13:32 | PROGRESS NOTE ---
DATE: 08/03/2018 SUBJECTIVE: Ms. Tripathi reports resting pretty good, but family at the bedside reports she was restless and telephoned family at 2:30 this morning seeming disoriented. Right now, she is awake and alert and appears calm. I reviewed with family concerns for multifactorial gait difficulty including likely long-standing diabetic neuropathy, possibility of recent diabetic lumbar radiculitis, likely contribution from degenerative joint changes. Family reports baseline forgetfulness more prominent in recent months. In that setting, we might also see significant apraxia contributing to gait difficulty. I encouraged her to be aggressive with management of her blood sugar and with her physical therapy. I do not have any other suggestion right now. Depending on her clinical course, we might consider cholinesterase inhibitor trial later and I discussed that briefly with family at the bedside. Thanks for asking Neurology to see Ms. Tripathi. cc: MD CORAZON Andrade III
--- NOTE | 2018-08-03 15:51 | PROGRESS NOTE ---
DATE: 08/03/2018 SUBJECTIVE: This patient is resting comfortably in bed. Apparently, she was confused this morning around 2:30 a.m. calling the family by phone. At this moment, she is alert, she is oriented x 2. She is oriented to time. Family members at the bedside, two of the sons. All their questions were answered. Her BUN is normal and creatinine is 1.2. I do believe that this is her baseline given her uncontrolled blood sugar. She is not following a diet at home. I have stopped the normal saline and I put this patient on half saline. I will replace her potassium as well. MRI of the head did not show an aneurysm. An x-ray of the hip was unremarkable. Likely, I will discharge this patient in 1 or 2 days. She does have constipation that is getting better. Apparently, she has been having good bowel movements. I will continue with the same management for now. I have discussed the case with the primary care doctor. I do believe this patient should not be living by herself given her possible dementia. As per the family and her primary care doctor, this patient has been declining for the past few months. OBJECTIVE: Vital Signs: Temperature 97.8, pulse 69, respiratory rate 18, blood pressure 139/69, oxygen saturation 96% on room air. HEENT: Head normocephalic. No trauma. PERRLA. Neck: Supple. No JVD. No masses. Central trachea. Chest: Clear to auscultation. No wheezing. No rales. Abdomen: Soft. Some generalized tenderness to palpation, mostly at the level of the right lower quadrant and periumbilical area. NO signs of peritoneal irritation. Extremities: 2+ nonpitting edema. No clubbing. No cyanosis. Neurologic: The patient is alert and oriented x 3. She has been complaining of lower extremity weakness mostly on the right side, 2 /5 to 3/5. LABORATORY: WBC 10.2, hemoglobin 8.2, hematocrit 26.9, platelets 449,000. Sodium 143, potassium 3.4, chloride 109, bicarbonate 24, BUN 18, creatinine 1.2, glucose 95. Hemoglobin A1c 12.1. Calcium 8.1. Albumin 2.6. ASSESSMENT AND PLAN: 1. Lower extremity weakness. This is likely secondary to diabetic neuropathy. X-ray of the hips did not show any acute abnormality. I do not see any hip osteoarthritis. 2. Abdominal pain. X-ray showed constipation and diffuse gas pattern. She has been having bowel movements, better now after putting this patient on a stool softener. For now, we will continue with the same treatment. 3. Acute kidney injury. Likely this is her baseline. BUN is normal, but creatinine is still 1.2. Continue with IV fluids. 4. Dehydration, resolved. 5. Hypertension, stable. Continue with same management. 6. Type 2 diabetes, uncontrolled. Hemoglobin A1c is 12.1. I will continue with sliding scale insulin and pattern of blood sugar. I discussed the case with the patient's family and I am worried about sending this patient home with insulin because of her possible dementia. Blood sugar in the morning has been stable. Likely, she needs to take her treatment at home as prescribed by her primary care doctor. She has been placed on glipizide and metformin, but again probably she has not been taking it. 7. We have a CT scan that reported the possibility of suprasellar mass representing an aneurysm of the internal carotid artery. We did a brain MRA that did not show any evidence of aneurysm, but she does have an extra-axial parasellar mass extra I will see are axial parasellar mass. 8. DVT involving the left peroneal vein diagnosed on 04/19/2018. Continue with Eliquis. 9. Bilateral lower extremity edema which is chronic. For now, we will monitor. 10. Possible dementia. For now, we will monitor as well. Continue home medications. 11. Gout. No symptoms. Continue with allopurinol daily. 12. Constipation. I have placed this patient on MiraLAX twice a day. She has been having bowel movements. We will monitor. 13. Hypokalemia. Will replace the potassium. cc: Josesito Frias MD MTDD
[2018-08-04] MEDS: HUMULIN R SUBQ SCH ×4 (07:01→21:08)
[2018-08-04 08:11] LABS: CALCIUM 8.1 mg/dL (8.8-10.2); CREATININE 1.2 mg/dL (0.5-0.9)
[2018-08-04] MEDS ORDERED: GLUCOTROL XL PO SCH (10:30)
[2018-08-04] MEDS: ZYLOPRIM PO SCH (11:04)
[2018-08-04] MEDS: ELIQUIS PO SCH ×2 (11:04→21:08)
[2018-08-04] MEDS: REMERON PO SCH (11:04)
[2018-08-04] MEDS: MIRALAX PO SCH ×2 (11:05→21:08)
[2018-08-04] MEDS: PRINIVIL PO SCH (11:11)
--- NOTE | 2018-08-04 14:43 | PROGRESS NOTE ---
DATE: 08/04/2018 SUBJECTIVE: This patient is resting comfortably in bed, I have ordered an evaluation by physical therapy and occupational therapy. Likely this patient will need to go to a rehab center. I already consulted the marriage and family social worker for evaluation. It looks like she is moving a little bit better the lower extremities, especially the left one. She has been having more bowel movements and the abdominal pain is getting better. OBJECTIVE: Vital Signs: Temperature 98.6 degrees, pulse 75, respiratory rate 15, blood pressure 152/72, oxygen saturation 95% on room air. HEENT: Head normocephalic. No trauma. PERRLA. Neck: Supple. No JVD. No masses. Central trachea. Chest: Clear to auscultation. No wheezing. No rales. Abdomen: Soft, some generalized tenderness to palpation mostly at the level of the right lower quadrant and periumbilical area. No signs of peritoneal irritation. Extremities: 1 to 2+ lower extremity nonpitting edema. No clubbing. No cyanosis. Neurological: The patient is alert and oriented x 2. She is not oriented to time. She does have some lower extremity weakness mostly on the right side around 3/5. LABORATORY: Sodium 142, potassium 4, chloride 108, bicarbonate 23, BUN 14, creatinine 1.2, glucose 187, calcium 8.1. ASSESSMENT AND PLAN: 1. Lower extremity weakness, likely secondary to diabetic neuropathy, x-ray of the hips did not show any acute abnormality or severe osteoarthritis. 2. Abdominal pain, x-ray showed constipation and diffuse gas pattern. She has been having bowel movements. I will continue with stool softener. 3. Acute kidney injury. Likely this is her baseline. Creatinine is 1.2. 4. Dehydration, resolved. 5. Hypertension, stable. I have placed this patient on a low dose lisinopril. 6. Type 2 diabetes, uncontrolled. Hemoglobin A1c is 12.1. Continue with sliding scale insulin pattern of blood sugar and I have placed this patient back on her glipizide. Also she has been on metformin at home. 7. 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 8. DVT involving the left peroneal vein diagnosed on 04/19/2018, continue with Eliquis. 9. Bilateral lower extremity edema, which is chronic. We will monitor for now. 10. Possible dementia for now. We will continue to monitor as well. Continue home medications. 11. Gout. No symptoms. Continue with allopurinol daily. 12. Constipation. Continue with MiraLAX twice a day. 13. Hypokalemia, resolved. 14. Generalized weakness. I have requested certified social workers in health care to evaluate the possibility of rehab center for this patient. cc: Josesito Frias MD MTDD
[2018-08-04] MEDS: GLUCOTROL XL PO SCH (16:43)
[2018-08-05] MEDS: TYLENOL PO PRN (03:01)
[2018-08-05] MEDS: HUMULIN R SUBQ SCH ×4 (06:18→21:02)
[2018-08-05 07:42] LABS: BASO# 0.04 X1000 (0.0-0.2); BASO% 0.5 % (0.0-0.8); EOS# 0.14 X1000 (0.0-0.7); EOS% 1.7 % (0.0-10.0); HEMATOCRIT 26.7 % (37.0-47.0); HEMOGLOBIN 8.3 g/dL (12.0-16.0); IMM GRAN# 0.03 X1000 (0.0-0.04); IMM GRAN% 0.4 % (0.0-0.5); LYMPH# 1.38 X1000 (1.2-3.4); LYMPH% 16.5 % (20.5-51.1); MCH 30.7 PG (27-31); MCHC 31.1 g/dL (33-37); MCV 98.9 FL (81-99); MONO# 1.39 X1000 (0.11-0.59); MONO% 16.6 % (1.7-9.3); MPV 8.8 FL (7.4-10.4); NEUT# 5.37 X1000 (1.4-6.5); NEUT% 64.3 % (42.2-75.2); PLT 451 X1000 (130-400); RDW 12.4 % (11.5-14.5); WBC 8.35 X1000 (4.8-10.8)
[2018-08-05 07:59] LABS: CREATININE 1.2 mg/dL (0.5-0.9)
[2018-08-05 08:19] LABS: FERRITIN 42 ng/mL (13-150)
--- NOTE | 2018-08-05 09:33 | PROGRESS NOTE ---
DATE: 08/05/2018 SUBJECTIVE: The patient is resting comfortably in bed. At this moment she is eating her food. She has been having bowel movements. The abdominal pain is getting better and it looks like her lower extremities are more stronger compared with admission. I have put this patient back on some Lasix. OBJECTIVE: Vital Signs: Temperature 97.9, pulse 63, respiratory rate 18, blood pressure 134/61. Oxygen saturation 97% on room air. HEENT: Head normocephalic. No trauma. PERRLA. Neck: Supple. No JVD. No masses. Central trachea. Chest: Clear to auscultation. No wheezing. No rales. Abdomen: Soft. Mild generalized tenderness to palpation mostly at the level of the periumbilical area. No signs of peritoneal irritation. Extremities: 1 to 2+ lower extremity nonpitting edema. No clubbing. No cyanosis. Neurologic: The patient is alert and oriented x 2. She does have some lower extremity weakness mostly on the right side, around 3-5 strength. LABORATORY: WBC 8.3, hemoglobin 9.3, hematocrit 26.7, platelet 451,00. Sodium 142, potassium 4, chloride 108. Bicarbonate 23, BUN 16, creatinine 1.2, glucose 126, calcium 8, iron 19. Total iron binding capacity 214, ferritin 42. ASSESSMENT AND PLAN: 1. Lower extremity weakness, likely secondary to diabetic neuropathy. X-ray of the hip did not show any acute abnormality or severe osteoarthritis. 2. Abdominal pain. X-ray showed constipation and diffuse gas pattern. She has been having bowel movements. She is tolerating p.o. We will continue with stool softener. 3. Acute kidney injury, likely this is her baseline due to uncontrolled diabetes. 4. Dehydration, resolved. 5. Hypertension, stable. 6. Type 2 diabetes uncontrolled. Hemoglobin A1c is 12.1. Continue with sliding scale insulin, pattern of blood sugar and I put this patient back on glipizide. She has been on metformin at home as well and today the blood sugar in the morning is 126, so I will continue with the same management. 7. CT scan of the head reported the possibility of suprasellar mass representing an aneurysm of the internal carotid artery. MRA of the brain did not show any evidence of aneurysm, but apparently she has an extra-axial parasellar mass. 8. DVT involving the left peroneal vein diagnosed on 04/19/2018. Continue with Eliquis. 9. Bilateral lower extremity edema, which is chronic. We will monitor for now. I have placed this patient back on some Lasix. 10. Possible dementia. For now we will continue to monitor as well. 11. Gout. No symptoms. Continue with allopurinol. 12. Constipation. Continue with MiraLAX twice a day. It looks like it is working good. 13. Hypokalemia, resolved. 14. Generalized weakness. Continue physical therapy. I have requested rehab center placement. cc: Josesito Frias MD
[2018-08-05] MEDS: ELIQUIS PO SCH ×2 (11:04→21:01)
[2018-08-05] MEDS: GLUCOTROL XL PO SCH (11:04)
[2018-08-05] MEDS: REMERON PO SCH ×2 (11:05→21:02)
[2018-08-05] MEDS: PRINIVIL PO SCH (11:05)
[2018-08-05] MEDS: ZYLOPRIM PO SCH (11:05)
[2018-08-05] MEDS: MIRALAX PO SCH ×2 (11:06→21:02)
[2018-08-05] MEDS: LASIX PO SCH (11:12)
[2018-08-06] MEDS: HUMULIN R SUBQ SCH ×4 (06:24→21:48)
[2018-08-06 07:49] LABS: CALCIUM 8.4 mg/dL (8.8-10.2); CREATININE 1.3 mg/dL (0.5-0.9)
[2018-08-06] MEDS: MIRALAX PO SCH ×2 (08:25→21:47)
[2018-08-06] MEDS: FERROUS SULFATE PO SCH (08:25)
[2018-08-06] MEDS: ZYLOPRIM PO SCH (08:25)
[2018-08-06] MEDS: PRINIVIL PO SCH (08:25)
[2018-08-06] MEDS: LASIX PO SCH (08:25)
[2018-08-06] MEDS: GLUCOTROL XL PO SCH (08:25)
[2018-08-06] MEDS: ELIQUIS PO SCH ×2 (08:25→21:47)
--- NOTE | 2018-08-06 09:53 | PROGRESS NOTE ---
DATE: 08/06/2018 SUBJECTIVE: Ms. Tripathi reports she has felt better each day. She was able to stand and walk with some assistance earlier today. On bedside exam, she has at least 4+/5 power in the iliopsoas bilaterally. I do not have any new thoughts from a neurologic standpoint. She has clinical evidence of peripheral neuropathy, presumed long-standing diabetic neuropathy, which would predispose her to unsteady gait. She recently became more unsteady with findings of proximal leg weakness, raising question of additional diabetic lumbar radiculitis. She seems to be improved as blood sugar has been controlled. ASSESSMENT AND PLAN: I believe there are plans for rehab assignment when she is ready for discharge. I encouraged her to continue to be aggressive with blood sugar control. I will be glad to see her again, inpatient or outpatient, if needed. Thanks for asking Neurology to see Ms. Tripathi. cc: MD CORAZON Andrade III
[2018-08-06] MEDS: NORVASC PO SCH (11:36)
[2018-08-06] MEDS: BASAGLAR SUBQ SCH (11:37)
[2018-08-06] MEDS ORDERED: INSULIN PEN NEEDLES ONE (11:45)
--- NOTE | 2018-08-06 16:27 | PROGRESS NOTE ---
DATE: 08/06/2018 SUBJECTIVE: The patient is resting comfortably. At the moment of my exam, she just had a bowel movement at the bedside commode. The abdominal pain is getting better, and it looks like she is a little bit stronger when compared with admission. The plan is to send this patient to a rehabilitation center. OBJECTIVE: Vital Signs: Temperature 98.1 degrees, pulse 72, respiratory rate 18, blood pressure 140/60, oxygen saturation 95% on room air. HEENT: Head normocephalic, no trauma. PERRLA. Neck: Supple. No JVD. No masses. Central trachea. Chest: Clear to auscultation. No wheezing. No rales. Abdomen: Soft. Mild tenderness to palpation mostly at the level of the periumbilical area. No signs of peritoneal irritation. Extremity: 1 to 2+ lower extremity non-pitting edema. No clubbing, no cyanosis. Neurological: The patient is alert and oriented x2. She does have some lower extremity weakness, mostly on the right side around 3/5 strength. LABORATORY DATA: Sodium 145, potassium 4, chloride 109, bicarbonate 26, BUN 19, creatinine 1.3, glucose 186, calcium 8.4. ASSESSMENT AND PLAN: 1. Lower extremity weakness, likely secondary to diabetic neuropathy. X-ray of the hip did not show any acute abnormality or severe osteoarthritis. This is getting better. We will continue physical therapy. 2. Abdominal pain. X-ray showed constipation and diffuse gas pattern. She has been having bowel movements. She is tolerating p.o. Continue with the stool softener that could be given once or twice a day. 3. Acute kidney injury. Likely this is her baseline due to uncontrolled diabetes. 4. Dehydration, resolved. 5. Hypertension, stable. I will add amlodipine to her medications. 6. Type 2 diabetes, uncontrolled. Her hemoglobin A1c is 12.1. Continue with sliding scale insulin and pattern of blood sugar, and I have placed this patient back on glipizide. She can be discharged with metformin as well, which she was taking at home. 7. 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 8. Deep vein thrombosis (DVT) involving the left peroneal vein, diagnosed on 04/19/2018. Continue with Eliquis. 9. Bilateral lower extremity edema, which is chronic. Continue with Lasix. 10. Possible dementia. For now, we will continue to monitor as well. 11. Gout. No symptoms. Continue with allopurinol. 12. Constipation. Continue with MiraLAX twice a day. It looks like it she is getting better. 13. Hypokalemia, resolved. 14. Generalized weakness and physical deconditioning. Continue physical therapy. The plan is to send this patient to a rehabilitation center. cc: Josesito Frias MD
[2018-08-06] MEDS: REMERON PO SCH (21:47)
[2018-08-07] MEDS: HUMULIN R SUBQ SCH ×3 (06:41→16:50)
[2018-08-07] MEDS: TYLENOL PO PRN (06:49)
[2018-08-07 08:25] LABS: CALCIUM 8.3 mg/dL (8.8-10.2); CREATININE 1.2 mg/dL (0.5-0.9)
[2018-08-07] MEDS: ELIQUIS PO SCH (09:30)
[2018-08-07] MEDS: PRINIVIL PO SCH (09:30)
[2018-08-07] MEDS: ZYLOPRIM PO SCH (09:30)
[2018-08-07] MEDS: MIRALAX PO SCH (09:30)
[2018-08-07] MEDS: LASIX PO SCH (09:30)
[2018-08-07] MEDS: NORVASC PO SCH (09:30)
[2018-08-07] MEDS: FERROUS SULFATE PO SCH (09:30)
[2018-08-07] MEDS: GLUCOTROL XL PO SCH (09:30)
[2018-08-07] MEDS: BASAGLAR SUBQ SCH (09:31)
--- NOTE | 2018-08-07 14:36 | DISCHARGE SUMMARY ---
ADMISSION DATE: 08/01/2018 DISCHARGE DATE: 08/07/2018 PRIMARY CARE PHYSICIAN: Dr. Juan Manuel Harris. HOSPITAL AND HOSPITAL COURSE: This is a 78-year-old female with a past medical history of type 2 diabetes, chronic bilateral lower extremity edema, hypertension, gout, diverticulosis, recent DVT, apparently an old history of DVT, as well as pulmonary emboli, and currently on anticoagulation, presented to the Emergency Department with a chief complaint of right leg pain, weakness. Apparently, the patient slept in a recliner the whole night and the following morning was unable to walk properly. Actually, she was not able to get up from the chair like she usually does. Then she went to the bathroom, she sat on the toilet, and she was unable to stand up, so she called 911. Then the firefighters came, noted to have weakness bilaterally. Apparently she was doing good the day before. Strength in her right side had decreased compared to left side. The patient was admitted with general weakness. Neurology was consulted. She also had some abdominal pain, which I thought was related to constipation, acute kidney injury with creatinine 1.3, they had seen previously that her creatinine was 0.8, felt some dehydration, and uncontrolled diabetes. So came into the hospital. She had an abdominal ultrasound done on 08/02, nonvisualization of the gallbladder, indeterminate. She had a brain MRA done on 08/02, no evidence of aneurysm, extra-axial parasellar mass was suggested. She had a hip and pelvic x-ray with degenerative changes but no fractures. Dr. Ortiz was consulted. He felt she had moderate proximal leg weakness, clinical evidence of peripheral neuropathy, presume has long-standing diabetic neuropathy. So began physical therapy. The recent increased gait difficulty could be multifactorial, contributions from degenerative joint arthralgia and wondered about even possible gout. She could have diabetic radiculoneuritis, proximal leg weakness due to upper lumbar radiculitis. So, they worked on controlling her sugars. Physical therapy was asked to help and she did show marked improvement. Did not see any evidence of a CVA and felt she would benefit from rehab, so plan to send her to rehab on 08/07/2018. DISCHARGE MEDICATIONS: Zyloprim 100 mg daily, Norvasc 5 mg a day, Eliquis 5 mg b.i.d., ferrous sulfate 325 mg daily, Lasix 40 mg a day, Glucotrol XL 5 mg daily, insulin glargine which is 5 units subcutaneous q.a.m., Prinivil 10 mg a day, Remeron 15 mg at bedtime, MiraLAX 17 g b.i.d. Follow up with primary care. cc: Jj Olvera MD
--- NOTE | 2018-08-07 14:55 | PROGRESS NOTE ---
DATE: 08/07/2018 SUBJECTIVE: Patient of Dr. Juan Manuel Harris. Presented with general weakness, mostly lower extremity and abdominal pain. A 78-year-old with past medical history of type 2 diabetes, chronic bilateral lower extremity edema, hypertension, gout, diverticulosis, recent DVT and apparently had a history of DVT as well as PE, currently on anticoagulation. The patient apparently slept in a recliner the whole night and was unable to walk properly and actually was not able to get up from her chair like she used to do. She went to the bathroom, sat on the toilet, was unable to stand up. She called I think 911 or firefighters for help. Noted to have weakness bilaterally. Apparently she was doing good the day before. Her strength in her right side decreased compared to the left side. The strength of the lower extremities on the right side decreased compared to her left side, both a decreased to 2 to 3 over 5. She is not able to walk by herself. Laboratory did not show leukocytosis. Hemoglobin was 9.2, platelet count was a little bit elevated but was elevated in 2016 as well. She does have acute on top of chronic kidney injury, so she was admitted with lower extremity weakness, right side compared to the left was worse than right. Right side is worse than the left in her strength. Abdominal pain. She denied any diarrhea. Acute kidney injury. Creatinine was 1.3, baseline is 0.8 to 0.9 and seems to be improving with fluids. So my understanding is they are looking for rehab at this point. OBJECTIVE: Vital Signs: Temperature was 98.8 degrees, pulse 72, respirations 18, blood pressure 123/58. HEENT: Pupils are equal, round. Lungs: Clear in all lung dill. Cardiovascular: Regular rhythm and rate without murmur or S3. Abdomen: Soft. Skin: Warm and dry. LABORATORY STUDIES: Blood sugars 308, 320, 286. ASSESSMENT AND PLAN: 1. Lower extremity weakness, likely secondary to diabetic neuropathy. X-ray of the hip did not show any acute abnormality. No severe osteoarthritis and this seems to be improving with physical therapy. 2. Abdominal pain. X-ray shows constipation. She seems to be having stools and stool softener is working. 3. Acute kidney injury. Likely this is baseline for uncontrolled diabetes. 4. Dehydration, improved. 5. Hypertension. I have added amlodipine to her medication. Blood pressure under good control. 6. Diabetes mellitus type 2. Hemoglobin A1c was 12. Trying to get her under better control. The patient was placed back on glipizide. 7. CT of her head reported possibility of some suprasellar mass representing an aneurysm of the internal carotid artery, but the MRI of the brain did not show any evidence of aneurysm and that she has an extra-axial parasellar mass which is nonspecific. 8. Deep vein thrombosis diagnosed 04/19/2018. She is on Eliquis. 9. Bilateral lower extremity edema which is chronic. 10. Possible dementia. 11. Gout. 12. Constipation. 13. Hypokalemia. 14. General weakness and deconditioning. Dr. Ortiz is following as well. Plan is for rehab. She has at least 4+ over 5 power in iliopsoas bilaterally. She has some clinical evidence of peripheral neuropathy, presumed long- standing diabetic neuropathy and that may predispose her to unsteady gait. Continue physical therapy. Hoping to get her to rehab. cc: Jj Olvera MD
[2018-08-07 16:37] VITALS: BP 146/74
== END 2018-08-07 16:49 | DRG 74 ==
LOC: SUPCPDRO → ED 10:43 → 3N 23:16 → SUATTDRO 23:16
PROVIDERS: ATTEND Emergency Medicine
CPT/HCPCS: 51701; 51798; 70450; 70544; 71010; 71045; 73522; 74019; 74020; 74175; 76700; 80048; 80053; 81001; 82550; 82607; 82728; 82746; 82948; 83036; 83540; 83550; 83605; 83735; 83880; 84443; 84484; 85025; 85610; 85730; 87040; 87088; 87275; 87276; 87804; 93005; 96361; 96374; 96375; 97162; 97165; 97530; 97535; 99285; 99291; A9270; J2270; J2405; J7030; P9612; Q9967; XXXXX

== ENCOUNTER 2019-02-23 11:20 | Inpatient (IN) ==
[2019-02-23 12:33] LABS: BASO# 0.03 X1000 (0.0-0.2); BASO% 0.2 % (0.0-0.8); EOS# 0.16 X1000 (0.0-0.7); EOS% 1.3 % (0.0-10.0); HEMATOCRIT 30.4 % (37.0-47.0); HEMOGLOBIN 9.8 g/dL (12.0-16.0); LYMPH# 1.08 X1000 (1.2-3.4); LYMPH% 8.8 % (20.5-51.1); MCH 31.3 PG (27-31); MCHC 32.2 g/dL (33-37); MCV 97.1 FL (81-99); MONO# 1.36 X1000 (0.11-0.59); MPV 9.2 FL (7.4-10.4); NEUT# 9.69 X1000 (1.4-6.5); NEUT% 78.7 % (42.2-75.2); PLT 472 X1000 (130-400); RBC 3.13 XMIL (4.2-5.4); RDW 14.4 % (11.5-14.5); WBC 12.32 X1000 (4.8-10.8)
[2019-02-23 12:41] LABS: ALB/GLOB RATIO 1.4; ALBUMIN 3.9 g/dL (3.5-5.0); CALCIUM 8.8 mg/dL (8.8-10.2); CREATININE 1.9 mg/dL (0.5-0.9); MAGNESIUM 2.2 mg/dL (1.5-2.7); POTASSIUM 4.3 mmol/L (3.5-5.1); TOTAL BILIRUBIN 0.19 mg/dL (0.20-1.00); TOTAL PROTEIN 6.6 g/dL (6.3-8.3)
[2019-02-23 13:21] LABS: URINE SOURCE CATH
[2019-02-23 13:26] LABS: BILIRUBIN URINE NEGATIVE (NEGATIVE); BLOOD URINE TRACE-INTACT (NEGATIVE); CLARITY CLEAR (CLEAR); COLOR YELLOW; GLUCOSE URINE NEGATIVE (NEGATIVE); KETONE URINE NEGATIVE (NEGATIVE); LEUKOCYTES URINE NEGATIVE (NEGATIVE); NITRITE URINE NEGATIVE (NEGATIVE); PROTEIN URINE NEGATIVE (NEGATIVE); SP GRAVITY URINE <= 1.005; UROBILINOGEN URINE 0.2 EU/dL (0.2-1.0)
[2019-02-23 13:45] LABS: URINE BACTERIA NEGATIVE /HFP; URINE EPITHELIAL CELLS <10 /HPF (<10); URINE RBC <10 /HPF (<10); URINE WBC <10 /HPF (<10)
--- NOTE | 2019-02-23 13:46 | PROVIDER DOCUMENTATION ---
This chart was entered by Hailey Foley Scribe, acting as scribe for Everett Griffith MD. HPI-General Adult - General Chief Complaint: Weakness Stated Complaint: Low blood sugar Time Seen by Provider: 02/23/19 11:35 Source: patient Allergies/Adverse Reactions: Patient Allergies Allergy/AdvReac Type Severity Reaction Status Date / Time amoxicillin [From Amoxil] Allergy Unknown Verified 02/23/19 11:49 cephalexin [From Keflex] Allergy Unknown Verified 02/23/19 11:49 diphenhydramine HCl * Allergy Unknown Verified 02/23/19 11:48 [From Benadryl] doxycycline Allergy Unknown Verified 02/23/19 11:49 erythromycin base Allergy Unknown Verified 02/23/19 11:49 sulfamethoxazole Allergy Unknown Verified 02/23/19 11:49 [From Bactrim] trimethoprim [From Bactrim] Allergy Unknown Verified 02/23/19 11:49 Home Medications: Home Medication List Medication Instructions Recorded Confirmed Last Taken Type Metformin HCl 500 mg PO BID 01/31/16 02/23/19 02/22/19 History Potassium Chloride 20 meq PO EVERY OTHER DAY 07/13/18 02/23/19 02/22/19 History Allopurinol [Zyloprim] 100 mg PO DAILY tablet 08/07/18 02/23/19 02/22/19 Rx Amlodipine [Norvasc] 5 mg PO DAILY tablet 08/07/18 02/23/19 02/22/19 Rx Ferrous Sulfate 325 mg PO DAILY tablet 08/07/18 02/23/19 02/22/19 Rx LISINOpril [Prinivil] 10 mg PO DAILY tablet 08/07/18 02/23/19 02/22/19 Rx Mirtazapine [Remeron] 15 mg PO QHS tablet 08/07/18 02/23/19 02/22/19 Rx Furosemide [Lasix] 80 mg PO DAILY 09/21/18 02/23/19 Unknown History Cabergoline 0.5 tab PO DIRECTED 02/23/19 02/23/19 Unknown History Glipizide E.r. [Glucotrol Xl] 2 tab PO BID 02/23/19 02/23/19 02/22/19 History Quetiapine Fumarate 1 dose PO DIRECTED 02/23/19 02/23/19 02/22/19 History Sitagliptin Phosphate [Januvia] 1 tab PO DAILY 02/23/19 02/23/19 02/22/19 History Warfarin Sodium [Coumadin] 1 tab PO QHS 02/23/19 02/23/19 02/22/19 History - History of Present Illness -Gen Adult Nature of Presenting Problems: 78 y/o female presents to ED with weakness onset this morning. EMS reports FSBS 59. EMS states she has had some orange juice and half of a peanut butter sandwich this morning. Pt reports she has not been able to get out of bed this morning and she was incontinent of urine. Pt denies falling. Pt has hx dementia and benign brain tumor. Pt is alert and oriented. Location of Pain/Injury: reports: none Pain Radiation: reports: no radiation Quality of Pain: reports: none Severity: reports: mild Onset/Duration: reports: this morning Timing: reports: still present Context/Activities at Onset: reports: none Modifying Factors: improves with: nothing Associated Symptoms: reports: weakness, other (incontinent of urine) Similar Symptoms Previously?: No Recently seen or treated by another doctor?: No Review of Systems - Adult - REVIEW OF SYSTEMS - ADULT Constitutional: denies: chills, fever Eyes: reports: no symptoms reported Ears, Nose, Mouth & Throat: reports: no symptoms reported Cardiovascular: denies: chest pain, palpitations Respiratory: denies: cough, shortness of breath Gastrointestinal: denies: abdominal pain, diarrhea, nausea, vomiting Genitourinary: reports: incontinence. denies: flank pain Musculoskeletal: denies: back pain, joint pain Integumentary: reports: no symptoms reported Neurological: reports: other (weakness). denies: dizziness/vertigo, seizure Psychiatric: reports: no symptoms reported Endocrine: reports: no symptoms reported Hematologic/Lymphatic: reports: no symptoms reported Allergic/Immunologic: reports: no symptoms reported All Other Systems: Reviewed and Negative Past History - Adult - PAST MEDICAL HISTORY-ADULT Review of Records: reports: Old Records Reviewed, Nursing Assessment Review, Medications Reviewed Major Childhood Illnesses: reports: denies history Cardiovascular: reports: blood clots, HTN, hyperlipidemia Respiratory: reports: denies history Gastrointestinal: reports: GERD, other (gallbladder problem currently being evaluated) Obstetrical/Gynecological: reports: denies history Genitourinary: reports: kidney disease, kidney stones Musculoskeletal: reports: denies history Neurological: reports: cancer/tumor, dementia Psychiatric: reports: denies history Endocrine/Immune: reports: Diabetes Diabetes Type: Type 2 Other Conditions: reports: denies history - PRIOR SURGERIES/PROCEDURES Surgical/Procedure History: reports: cholecystectomy, hysterectomy, other (lithrotripsy) - IMMUNIZATION STATUS Childhood Immunizations: See Nurse Assessment Flu Vaccine: See Nurse Assessment - FAMILY HISTORY Family History: reviewed, not pertinent - SOCIAL HISTORY Smoking: non-smoker Substance Use: none/never Alcohol Use Frequency: never Living Situation: family Physical Exam-General - PHYSICAL EXAM-ADULT Initial Vital Signs Reviewed: Yes - CONSTITUTIONAL General Appearance: appears well, alert, no apparent distress - EYES Eyes: PERRL/EOMI, pink conjunctivae - HEAD, EARS, NOSE, MOUTH & THROAT HENMT: normocephalic/atraumatic, moist mucous membranes, normal ENT inspection - NECK Neck: non-tender, full range of motion - RESPIRATORY Respiratory: chest non-tender, lungs clear, normal breath sounds - CARDIOVASCULAR Cardiovascular: normal peripheral pulses, regular rate, rhythm - GASTROINTESTINAL (ABDOMEN) Abdominal Exam: normal bowel sounds, non tender, soft, distended - MUSCULOSKELETAL Back Exam: normal inspection, no CVA tenderness, no vertebral tenderness Extremity: normal range of motion - SKIN Integumentary: normal color, warm/dry - NEUROLOGIC Neurologic: grossly normal - PSYCHIATRIC Psych/Mental Status: normal mood/affect, normal thought content, normal thought process, oriented x 3 Progress - PLAN OF CARE/RESULTS Progress/Plan/Lab Results: Vital Signs - 8 hr 02/23/19 11:31 Temperature 98.8 F Pulse Rate 71 Respiratory Rate 18 Blood Pressure 155/74 O2 Sat by Pulse Oximetry 92 L Laboratory Results - last 24 hr 02/23/19 11:41 POC Glucose 66 L D Laboratory Tests 02/23/19 02/23/19 02/23/19 11:41 12:04 12:04 WBC 12.32 H RBC 3.13 L Hgb 9.8 L Hct 30.4 L MCV 97.1 MCH 31.3 H MCHC 32.2 L RDW Std Deviation 14.4 Plt Count 472 H MPV 9.2 Neut % (Auto) 78.7 H Lymph % (Auto) 8.8 L [place] % (Auto) 11.0 H Eos % (Auto) 1.3 Baso % (Auto) 0.2 Neut # (Auto) 9.69 H Lymph # (Auto) 1.08 L [place] # (Auto) 1.36 H Eos # (Auto) 0.16 Baso # (Auto) 0.03 Sodium 141 Potassium 4.3 Chloride 99 Carbon Dioxide 26 Anion Gap 16 BUN 53 H Creatinine 1.9 H Estimated GFR/1.73 m2 26 BUN/Creatinine Ratio 28 Glucose 84 POC Glucose 66 L D Calculated Osmolality 295 Calcium 8.8 Magnesium 2.2 Total Bilirubin 0.19 L AST 24 ALT 9 L Alkaline Phosphatase 110 H Total Protein 6.6 Albumin 3.9 Globulin 2.7 Albumin/Globulin Ratio 1.4 Urine Source Urine Color Urine Clarity Urine Turbidity Urine pH Ur Specific [place] Urine Protein Ur Glucose (Stick) Urine Ketones Ur Ketones (Stick) Urine Blood Urine Nitrite Urine Bilirubin Urine Urobilinogen Urobilinogen Dipstick Urine Leukocytes Urine WBC (Auto) Urine RBC (Auto) U Epithel Cells (Auto) Urine Bacteria (Auto) Urine Microscopic RBC Urine WBC Urine Microscopic WBC Ur Epithelial Cells Urine Bacteria Urine Glucose 02/23/19 02/23/19 12:51 12:51 WBC RBC Hgb Hct MCV MCH MCHC RDW Std Deviation Plt Count MPV Neut % (Auto) Lymph % (Auto) [place] % (Auto) Eos % (Auto) Baso % (Auto) Neut # (Auto) Lymph # (Auto) [place] # (Auto) Eos # (Auto) Baso # (Auto) Sodium Potassium Chloride Carbon Dioxide Anion Gap BUN Creatinine Estimated GFR/1.73 m2 BUN/Creatinine Ratio Glucose POC Glucose Calculated Osmolality Calcium Magnesium Total Bilirubin AST ALT Alkaline Phosphatase Total Protein Albumin Globulin Albumin/Globulin Ratio Urine Source Cancelled CATH Urine Color Cancelled YELLOW Urine Clarity CLEAR Urine Turbidity Cancelled Urine pH Cancelled 7.0 Ur Specific [place] Cancelled <= 1.005 Urine Protein Cancelled NEGATIVE Ur Glucose (Stick) Cancelled Urine Ketones NEGATIVE Ur Ketones (Stick) Cancelled Urine Blood Cancelled TRACE-INTACT A Urine Nitrite Cancelled NEGATIVE Urine Bilirubin Cancelled NEGATIVE Urine Urobilinogen 0.2 Urobilinogen Dipstick Cancelled Urine Leukocytes Cancelled Urine WBC (Auto) Cancelled Urine RBC (Auto) Cancelled U Epithel Cells (Auto) Cancelled Urine Bacteria (Auto) Cancelled Urine Microscopic RBC <10 Urine WBC NEGATIVE Urine Microscopic WBC <10 Ur Epithelial Cells <10 Urine Bacteria NEGATIVE Urine Glucose NEGATIVE Result Diagrams: 02/23/19 12:04 02/23/19 12:04 - REASSESSMENT Reassessment #1 Time Reassessed: 15:23 Status: other (Nursing staff reports modest bowel movement following disimpa ction.) - EKG 1 Time of EKG reading by physician:: 12:39 EKG Read and Signed by:: Everett Griffith EKG Interpretation (*Must complete 3 of following elements*): Abnormal Rate: 73 Rhythm: Sinus with 1st degree AV block [place]: normal QRS: other (possible anterior infarct) VA Interval: normal ST Wave: normal - CT/MRI 1 CT Study: Abdomen, Pelvis Impression: See EMR Report ([facility] - [address], [address], [place] [address] [facility] - [address] [place] [address] Department of Imaging Patient: BETHANY CLARKE Date: 02/23/19#: [id number] : 1940DM Status: REG [facility]#: [id number] e/Sex: 78/FRoom/Bed: Loc: ED Ordering Physician: Everett Griffith MD Family Physician: Juan Manuel Harris MD Reason for Procedure: abd distension, pain, no BM Signed EXAM: CT ABDOMEN/PELVIS W/O CONTRAST INDICATION: abd distension, pain, no BM TECHNIQUE: This exam was performed using automated exposure control, adjustment of mA or kV according to patient size, and/or use of iterative reconstruction technique. COMPARISON: CTA abdomen dated 08/01/2018 FINDINGS: There is linear scarring versus subsegmental atelectasis at the lung bases that is similar to the previous study. There has been a prior cholecystectomy. The liver, spleen, and pancreas are grossly unremarkable. There are two left adrenal masses that have been stable at least as far back as 2016 and very likely represent adenomas. There are a few stable renal cysts bilaterally. The kidneys are unremarkable, otherwise. Urinary bladder is unremarkable. There is a large amount of stool in the colon and rectum indicating significant constipation. The rectum is somewhat distended with stool suggesting a rectal fecal impaction. There is possible wall thickening associated with the lower rectum on the left just above the anal verge. This may simply represent inspissated stool adherent to the left rectal wall. A mass cannot completely be excluded with no IV contrast. Correlate with clinical exam. There is patchy small bowel gas that is likely related to the constipation. There is nothing to indicate a high-grade obstruction. The remainder of the GI tract is essentially unremarkable. There has been a prior hysterectomy. There is trace nonspecific free fluid layering in the pelvis. There is no evidence of free abdominal gas. There is no evidence of acute osseous abnormality. IMPRESSION: 1.Constipation and rectal fecal impaction as described. 2.Possible wall thickening at the left side of the lower rectum just above the anal verge. Please see the above discussion. 3.Nonspecific trace free fluid layering in the pelvis. 4.Other incidental/nonacute findings detailed above. Electronically signed by Nikolai Guevara 02/23/2019 1:47 PM 02/23/19 1347 Interpreting Physician: Nikolai Guevara MD Dictated Date/Time: 02/23/19 1906 cc: Everett Griffith MD; Juan Manuel Harris MD) - CONSULTS/PCP/HOSPITALIST Notification #1 *Consult/PCP/Hospitalist*: JOHN Dowd for hospitalist Time Discussed: 17:13 Reason/Comments: Azotemia, renal insufficiency, dehydration, fecal impaction Consult Disposition: Admit Procedures - ADDITIONAL PROCEDURES Additional Procedure: OTHER (Manual Disimpaction) Description of Procedure (Other): Modest amount of stool manually removed with disimpaction. Departure - Departure Date of Disposition Decision: 02/23/19 Time of Disposition Decision: 17:08 DIAGNOSIS: Azotemia, Renal insufficiency, Dehydration, Fecal impaction Disposition: HOME 01 Certified Medical Emergency: Emergent Condition: Stable Referrals and Follow-Ups: Juan Manuel Harris MD [Primary Care Provider] - - Critical Care Note This patient required my direct & personal management of CC.: No Attestation - Physician/ STEPHANY Attestation Patient care was provided by Advanced Practice Provider:: No The physician spent face to face time with patient:: Yes Advanced Practice Provider documentation review:: Supervising physician onsite and consulted in the evaluation and care of this patient. The physician did have a face to face encounter with the patient. This chart was documented by the indicated scribe, (Hailey Foley, Daniel) and accurately reflects the services I performed and decisions made by me, Everett Griffith MD, as attested by the provider's signature.
--- NOTE | 2019-02-23 13:49 | Diag Imaging Result Doc PS360 ---
EXAM: CT ABDOMEN/PELVIS W/O CONTRAST INDICATION: abd distension, pain, no BM TECHNIQUE: This exam was performed using automated exposure control, adjustment of mA or kV according to patient size, and/or use of iterative reconstruction technique. COMPARISON: CTA abdomen dated 08/01/2018 FINDINGS: There is linear scarring versus subsegmental atelectasis at the lung bases that is similar to the previous study. There has been a prior cholecystectomy. The liver, spleen, and pancreas are grossly unremarkable. There are two left adrenal masses that have been stable at least as far back as 2016 and very likely represent adenomas. There are a few stable renal cysts bilaterally. The kidneys are unremarkable, otherwise. Urinary bladder is unremarkable. There is a large amount of stool in the colon and rectum indicating significant constipation. The rectum is somewhat distended with stool suggesting a rectal fecal impaction. There is possible wall thickening associated with the lower rectum on the left just above the anal verge. This may simply represent inspissated stool adherent to the left rectal wall. A mass cannot completely be excluded with no IV contrast. Correlate with clinical exam. There is patchy small bowel gas that is likely related to the constipation. There is nothing to indicate a high-grade obstruction. The remainder of the GI tract is essentially unremarkable. There has been a prior hysterectomy. There is trace nonspecific free fluid layering in the pelvis. There is no evidence of free abdominal gas. There is no evidence of acute osseous abnormality. IMPRESSION: 1.Constipation and rectal fecal impaction as described. 2.Possible wall thickening at the left side of the lower rectum just above the anal verge. Please see the above discussion. 3.Nonspecific trace free fluid layering in the pelvis. 4.Other incidental/nonacute findings detailed above. Electronically signed by Nikolai Guevara 02/23/2019 1:47 PM
[2019-02-23] MEDS ORDERED: DULCOLAX PR ONE (15:23)
[2019-02-23] MEDS ORDERED: ZOFRAN IV PRN (18:06)
[2019-02-23] MEDS ORDERED: CABERGOLINE PO SCH (18:15)
--- NOTE | 2019-02-23 21:31 | HISTORY AND PHYSICAL ---
PRIMARY CARE PHYSICIAN: Dr. Juan Manuel Harris. CHIEF COMPLAINT: Weakness. HISTORY OF PRESENT ILLNESS: Ms. Tripathi is a 78-year-old, female. She presented to the ER today with complaints of weakness that has been persisting for the past couple of days. She stated that today, she was unable to get out of the bed, so she called her family, who then decided to call the EMS. She states she has been unable to eat or drink for the past 2 to 3 days. She has been having severe weakness for the past few days. She states she has not been able to have a bowel movement for greater than 3 days. Family states the patient told them that she had a couple of falls this past week. The patient, however, denies these falls at this time. The patient does have dementia. She does live at home by herself and is able to care for herself. The patient does have 4 children. They do live somewhat close by. The patient does not drive. She has to be taken places by her children. The patient is able to answer all of my questions appropriately. She has 2 sons that are at the bedside. Upon arrival to the ER, patient's glucose was noted to be 66. She was given some orange juice the patient states she has not eaten since yesterday. Her glucose has now come up to the 80s. CT scan of the abdomen and pelvis was noted to show a rectal fecal impaction. The patient was disimpacted by the ER physician. The patient is now sitting up on the bedside commode. She is having a bowel movement at this time. This is her second bowel movement since she has come into the ER. The patient denies any blood in her stool. She denies any nausea or vomiting. Abdomen is mildly distended. It is somewhat tender to touch. The patient is noted to have an elevated white blood cell count of 12.32. She is also noted to have an elevated creatinine of 1.9. Her creatinine usually is around 1.3. She does not have any edema to her extremities. Patient states she has not been voiding very much over the past few days. The patient is denying any pain at this time. She just states she has been very weak and not felt good for the past couple of days. PAST MEDICAL HISTORY: DVT, PE, diabetes, hypertension, lower extremity edema, diverticulosis, dementia, peripheral neuropathy, frequent falls. PAST SURGICAL HISTORY: Hysterectomy, a left breast cyst that has been drained, and cholecystectomy in 2016. SOCIAL HISTORY: Patient lives alone. She denies any alcohol, drugs, or smoking history. ALLERGIES: Amoxicillin, Keflex, Benadryl, doxycycline, erythromycin, Bactrim. MEDICATIONS: 1. Metformin 500 mg p.o. b.i.d. 2. Potassium chloride 20 mEq p.o. every other day. 3. Zyloprim 100 mg p.o. daily. 4. Amlodipine 5 mg p.o. daily. 5. Lisinopril 10 mg p.o. daily. 6. Remeron 15 mg p.o. at bedtime. 7. Ferrous sulfate 325 mg p.o. daily. 8. Lasix 80 mg p.o. daily. 9. Cabergoline 0.5 mg p.o. as directed. 10. Seroquel 25 mg p.o. as directed. 11. Januvia 100 mg p.o. daily. 12. Coumadin 5 mg p.o. at bedtime. 13. Glipizide ER 2.5 mg 2 tablets p.o. b.i.d. LABORATORY AND DIAGNOSTICS: White blood cell count 12.32, hemoglobin 9.8, hematocrit 30.4, platelet count 472,000. Sodium 141, potassium 4.3, carbon dioxide 26, anion gap 16, BUN 53, creatinine 1.9, estimated GFR is 26, glucose 84, calcium 8.8, magnesium 2.2. Total bilirubin is 0.19, AST is 24, ALT is 9, alkaline phosphatase is 110. Urinalysis is negative. CT of the abdomen and pelvis shows constipation and rectal fecal impaction, possible wall thickening at the left base of the lower rectum just above the anal verge. REVIEW OF SYSTEMS: A 12-point review of systems has been obtained and all are negative, except what is stated above in the HPI. PHYSICAL EXAMINATION: VITAL SIGNS: Temperature 98.8 degrees, pulse rate 71, respiratory rate 18, blood pressure 155/74, O2 saturation 96% on room air. Height 5 feet, weight 160 pounds. GENERAL: This is a 78-year-old, female. She is sitting up on the side of the bed. She is in no acute distress. She is well nourished and well developed. HEENT: Atraumatic, normocephalic. Pupils equal, round, reactive to light. Extraocular movements intact. Sclerae is icteric. Mucous membranes are dry. NECK: Supple. No lymphadenopathy. Trachea is midline. No JVD. No thyromegaly. No bruits. CARDIOVASCULAR: Regular rate and rhythm. No murmurs, gallops, or rubs appreciated. RESPIRATORY: Lung sounds are clear with equal chest excursion. Respirations are nonlabored with no accessory muscle usage. GASTROINTESTINAL: Abdomen is soft, nontender, nondistended. Bowel sounds are present x4. NEUROLOGIC: Cranial nerves 2-12 intact. The patient is awake, alert, and oriented. Able to move all extremities well. MUSCULOSKELETAL: Full distal strength noted. No abnormalities. No deformities. EXTREMITIES: No clubbing. No cyanosis. No edema. DP and PT pulses are present and palpable. SKIN: Warm, dry, intact. No rashes. No bruises. No diaphoresis. ASSESSMENT/PLAN: 1. Dehydration. We are going to admit this patient to the medical floor. We are going to place her on slow IV fluid hydration with normal saline at 50 mL/h. The patient is on Lasix 80 mg daily at home. We are going to hold this at this time. We will place her on insurance loss adjuster. 2. Acute kidney injury. Patient has elevated creatinine of 1.9. Her normal creatinine is about 1.3. We are going to watch this and repeat labs in the morning. We are going to give her slow IV fluid hydration at 50 mL an hour and watch her for overload. 3. Diabetes mellitus type 2. The patient is on several medications at home for her diabetes and we are going to hold all of these medicines at this time. Patient's blood sugar was 66 on arrival to the ER. We are going to check her blood sugars before meals and at bedtime. We will put her on a diabetic diet. We are going to provide her with sliding scale insulin of Humulin R. We are going to check her A1c level and see how her blood sugars have been. 4. Hypertension. The patient is on a couple of medications at home for her blood pressure. We are going to hold her lisinopril at this time because of her acute kidney injury. We will resume her Norvasc. Blood pressure is okay at this time. We will provide her with p.r.n.'s if needed for her blood pressure. 5. Dementia. This is likely what is causing her weakness and her falls. I have ordered Physical Therapy to evaluate and treat this patient. This patient will possibly need rehab at discharge. This will need to be further evaluated. We have admitted this patient to the medical floor. We will place her on insurance loss adjuster. We will place her on a diabetic diet. We are going to give her sliding scale insulin and check her blood sugars before meals and at bedtime. We are going to give her slow IV fluid hydration. We have ordered Physical Therapy to see this patient. I have reordered some of her home medications and reordered some blood work for in the morning. All other further treatment pending hospital course and lab data. Dictated by JOHN Anand for Francisco Salinas MD Addendum: Patient seen and examined by myself. Agree with JOHN note. It reflects my assessment and plan. Patient is being admitted to hospital for dehydration and ADILENE. Will start IV fluids and keep checking BMP daily. Patient interested in going to rehab so will consult social services counselor. cc: MD Juan Manuel Whelan MD MTDD
[2019-02-23] MEDS: HUMULIN R SUBQ SCH (22:52)
[2019-02-23] MEDS: MIRALAX PO SCH (23:07)
[2019-02-23] MEDS: NS 1,000 ML IV SCH (23:07)
[2019-02-23] MEDS: REMERON PO SCH (23:07)
--- NOTE | 2019-02-24 04:34 | EKG Report ---
Test Performed on : 02/23/2019 12:39:16 PM Test Reason : weakness Blood Pressure : / mmHG Vent. Rate : 073 BPM Atrial Rate : 073 BPM P-R Int : 396 ms QRS Dur : 090 ms QT Int : 420 ms P-R-T Axes : 075 -02 028 degrees QTc Int : 462 ms Sinus rhythm. with 1st degree AV block. Possible Anterior infarct (cited on or before 01-AUG-2018) Abnormal ECG When compared with ECG of 01-AUG-2018 10:54, Nonspecific T wave abnormality has replaced inverted T waves in Inferior leads Unconfirmed Result
[2019-02-24] MEDS: HUMULIN R SUBQ SCH ×5 (06:36→20:43)
[2019-02-24 07:40] LABS: BASO# 0.04 X1000 (0.0-0.2); BASO% 0.4 % (0.0-0.8); EOS# 0.33 X1000 (0.0-0.7); EOS% 3.2 % (0.0-10.0); HEMATOCRIT 29.5 % (37.0-47.0); HEMOGLOBIN 9.3 g/dL (12.0-16.0); IMM GRAN# 0.02 X1000 (0.0-0.04); IMM GRAN% 0.2 % (0.0-0.5); INR 2.5; LYMPH# 1.32 X1000 (1.2-3.4); LYMPH% 12.9 % (20.5-51.1); MCH 30.3 PG (27-31); MCHC 31.5 g/dL (33-37); MCV 96.1 FL (81-99); MONO# 1.27 X1000 (0.11-0.59); MONO% 12.4 % (1.7-9.3); MPV 9.2 FL (7.4-10.4); NEUT# 7.23 X1000 (1.4-6.5); NEUT% 70.9 % (42.2-75.2); PLT 449 X1000 (130-400); PROTIME 27.7 Seconds (11.0-16.0); RBC 3.07 XMIL (4.2-5.4); RDW 14.2 % (11.5-14.5); WBC 10.21 X1000 (4.8-10.8)
[2019-02-24 07:49] LABS: HEMOGLOBIN A1C 6.2 % (4.8-6.0)
[2019-02-24 07:56] LABS: ALB/GLOB RATIO 1.2; ALBUMIN 3.3 g/dL (3.5-5.0); CALCIUM 7.8 mg/dL (8.8-10.2); CREATININE 1.6 mg/dL (0.5-0.9); POTASSIUM 4.2 mmol/L (3.5-5.1); TOTAL BILIRUBIN 0.29 mg/dL (0.20-1.00)
[2019-02-24] MEDS: PRILOSEC PO SCH (09:34)
[2019-02-24] MEDS: FERROUS SULFATE PO SCH (09:34)
[2019-02-24] MEDS: MIRALAX PO SCH ×2 (09:34→20:43)
[2019-02-24] MEDS: ZYLOPRIM PO SCH (09:34)
[2019-02-24] MEDS: NORVASC PO SCH (09:34)
[2019-02-24] MEDS: COUMADIN PO SCH ×2 (09:39→20:43)
--- NOTE | 2019-02-24 14:09 | PROGRESS NOTE ---
DATE: 02/24/2019 SUBJECTIVE: Patient reports feeling fine. Denies any fever or chills or abdominal pain. OBJECTIVE: Vital Signs: Temperature 98.4 degrees, heart rate 68, respiratory rate 18, blood pressure 115/50, O2 saturation 98% on room air. General: This is a 78-year-old female lying in bed, in no acute distress. Cardiovascular: S1, S2 heard. No murmurs, gallops, or rubs. Regular rate and rhythm. Respiratory: Clear bilaterally to auscultation. No work of breathing or using accessory muscles. Abdomen: Soft, nontender to palpation. Bowel sounds present. No organomegaly. Extremities: No clubbing, cyanosis, or edema. Peripheral pulses present in both legs. Neurological: The patient alert oriented x3. Moves 4 extremities. LABORATORY DATA: Reviewed. ASSESSMENT AND PLAN: 1. Acute kidney injury secondary to dehydration. The creatinine has improved to 1.6 from 1.9. We will continue with IV fluids. 2. Diabetes mellitus type 2. Patient is on sliding scale insulin and Accu-Chek before meals and also at bedtime. 3. Hypertension. Blood pressure is under control. We will continue with the same management. 4. History of dementia. Aware. Will continue home medication. 5. Physical deconditioning. Physical therapy has been consulted as well as occupational therapy. As per family and patient they want to go to rehab facility so school social worker has been consulted. cc: Francisco Salinas MD
[2019-02-24] MEDS: NS 1,000 ML IV SCH ×2 (17:01→20:42)
[2019-02-24] MEDS: REMERON PO SCH (20:43)
[2019-02-25] MEDS: HUMULIN R SUBQ SCH ×4 (06:45→21:45)
[2019-02-25] MEDS: FERROUS SULFATE PO SCH (08:35)
[2019-02-25] MEDS: ZYLOPRIM PO SCH (08:35)
[2019-02-25] MEDS: PRILOSEC PO SCH (08:35)
[2019-02-25] MEDS: TYLENOL PO PRN ×2 (08:35→15:39)
[2019-02-25] MEDS: NORVASC PO SCH (08:35)
[2019-02-25] MEDS: MIRALAX PO SCH ×2 (08:36→21:44)
[2019-02-25] MEDS ORDERED: GOLYTELY PO ONE (10:23)
[2019-02-25 12:25] LABS: ALBUMIN 3.4 g/dL (3.5-5.0); CALCIUM 7.8 mg/dL (8.8-10.2); CREATININE 1.5 mg/dL (0.5-0.9); PHOSPHORUS 3.2 mg/dL (2.7-4.5); POTASSIUM 4.5 mmol/L (3.5-5.1)
--- NOTE | 2019-02-25 12:34 | PROGRESS NOTE ---
DATE: 02/25/2019 SUBJECTIVE: Patient reports feeling fine. Reports not having any bowel movement since admission. OBJECTIVE: Vital Signs: Temperature 98.2 degrees, heart rate 77, respiratory rate 22, blood pressure 153/88, O2 saturation 97% on room air. General Examination: This is a 78-year-old, female lying in bed, in no acute distress. Cardiovascular Examination: S1 and S2 heard. No murmurs, gallops, or rubs. Regular rate and rhythm. Respiratory Examination: Clear bilaterally to auscultation. No work of breathing or using accessory muscles. Abdomen: Soft, nontender to palpation. Bowel sounds present. No organomegaly. Extremities: No clubbing, cyanosis, or edema. Peripheral pulses present in both legs. Neurological Examination: The patient is alert and oriented x3. Moves 4 extremities. Laboratory Data: Still pending. ASSESSMENT AND PLAN: 1. Acute kidney injury secondary to dehydration. Labs are still pending from. She reports having good urine output. We will continue to monitor. 2. Diabetes mellitus type 2. We will continue with sliding scale insulin, and Accu-Cheks before meals and also at bedtime. 3. History of dementia. Aware. We will continue home medications. 4. Physical deconditioning. Physical therapy is going to work with this patient but because she lives alone and she has become very weak, a rehab facility has been considered for her. She agreed with the plan. We will wait for social worker assistant to get a bed for her. cc: Francisco Salinas MD MTDD
[2019-02-25] MEDS: NS 1,000 ML IV SCH (15:59)
[2019-02-25] MEDS ORDERED: ZOFRAN ODT PO PRN (17:22)
[2019-02-25] MEDS: COUMADIN PO SCH (21:44)
[2019-02-25] MEDS: REMERON PO SCH (21:44)
[2019-02-26] MEDS: HUMULIN R SUBQ SCH ×4 (06:56→22:10)
[2019-02-26 08:23] LABS: ALBUMIN 3.3 g/dL (3.5-5.0); CREATININE 1.2 mg/dL (0.5-0.9); PHOSPHORUS 2.9 mg/dL (2.7-4.5); POTASSIUM 4.3 mmol/L (3.5-5.1)
[2019-02-26] MEDS: MIRALAX PO SCH ×2 (09:48→22:10)
[2019-02-26] MEDS: FERROUS SULFATE PO SCH (09:48)
[2019-02-26] MEDS: NORVASC PO SCH (09:48)
[2019-02-26] MEDS: ZYLOPRIM PO SCH (09:48)
[2019-02-26] MEDS: PRILOSEC PO SCH (09:48)
--- NOTE | 2019-02-26 16:13 | PROGRESS NOTE ---
DATE: 02/26/2019 SUBJECTIVE: Patient has no major complaints. OBJECTIVE: Vital signs: Blood pressure is 119/49, heart rate of 62, respiratory rate of 16, temperature 98.5 degrees. Cardiovascular: Regular rate and rhythm. Pulmonary: Bilateral breath sounds. Clear to auscultation. GI: Soft, nontender, nondistended. Bowel sounds are positive. LABORATORY DATA: Creatinine is down to 1.2, glucose 246. She seems to be doing better. PROBLEM LIST: 1. Acute kidney injury. Will continue gentle hydration and follow. Numbers are slowly improving. 2. Type 2 diabetes. Continue sliding scale. Follow blood sugars. 3. Dementia. Stable on her current medications. 4. Generalized weakness. We will continue treatment and follow. DISPOSITION: Pending her clinical status. cc: Maurice Ewing MD
[2019-02-26] MEDS: COUMADIN PO SCH (22:10)
[2019-02-26] MEDS: REMERON PO SCH (22:10)
[2019-02-27] MEDS: HUMULIN R SUBQ SCH ×2 (06:51→12:32)
[2019-02-27 07:18] LABS: PROTIME 23.2 Seconds (11.0-16.0)
[2019-02-27 07:19] LABS: BASO# 0.03 X1000 (0.0-0.2); BASO% 0.4 % (0.0-0.8); EOS# 0.34 X1000 (0.0-0.7); HEMATOCRIT 27.4 % (37.0-47.0); HEMOGLOBIN 8.7 g/dL (12.0-16.0); IMM GRAN# 0.03 X1000 (0.0-0.04); IMM GRAN% 0.4 % (0.0-0.5); LYMPH# 1.27 X1000 (1.2-3.4); LYMPH% 14.9 % (20.5-51.1); MCH 30.6 PG (27-31); MCHC 31.8 g/dL (33-37); MCV 96.5 FL (81-99); MONO% 11.8 % (1.7-9.3); MPV 8.9 FL (7.4-10.4); NEUT# 5.83 X1000 (1.4-6.5); NEUT% 68.5 % (42.2-75.2); PLT 441 X1000 (130-400); RBC 2.84 XMIL (4.2-5.4); RDW 14.1 % (11.5-14.5)
[2019-02-27 07:41] LABS: POTASSIUM 4.4 mmol/L (3.5-5.1)
[2019-02-27 07:42] LABS: ALBUMIN 3.2 g/dL (3.5-5.0); CALCIUM 8.2 mg/dL (8.8-10.2); CREATININE 1.3 mg/dL (0.5-0.9); PHOSPHORUS 3.3 mg/dL (2.7-4.5)
[2019-02-27] MEDS: MIRALAX PO SCH (08:47)
[2019-02-27] MEDS: NORVASC PO SCH (08:47)
[2019-02-27] MEDS: FERROUS SULFATE PO SCH (08:47)
[2019-02-27] MEDS: PRILOSEC PO SCH (08:47)
[2019-02-27] MEDS: ZYLOPRIM PO SCH (08:47)
--- NOTE | 2019-02-27 09:38 | Diag Imaging Result Doc PS360 ---
EXAM: CHEST-PORTABLE HISTORY: Rehab placement TECHNIQUE: Portable chest COMPARISON: 08/01/2018 FINDINGS: The lungs are well expanded. The heart is not enlarged. The vessels are not distended. There are no infiltrates. No effusion identified. Mid left lung nodule unchanged. There is also scarring in the left lung. IMPRESSION: Stable chest Electronically signed by Dax Roberts 02/27/2019 9:36 AM
[2019-02-27 12:52] VITALS: BP 136/71
--- NOTE | 2019-02-27 14:21 | DISCHARGE SUMMARY ---
ADMISSION DATE: 02/23/2019 DISCHARGE DATE: 02/27/2019 CONSULTATIONS: None. PERTINENT PROCEDURES: Abdomen and pelvis CT. Constipation and rectal fecal impaction. Possible wall thickening at the left side of the lower rectum just above the anal verge. Nonspecific trace free fluid layering in the pelvis. DISCHARGE DIAGNOSES: 1. Acute kidney injury, improved. 2. Type 2 diabetes. Continue with pattern blood sugars and home regimen. 3. Dementia, stable on current medications. 4. Generalized weakness. Continue with physical therapy at rehab. 5. Dehydration, resolved. HOSPITAL COURSE: Briefly, Ms. Tripathi is a 78-year-old female who carries a past medical history of DVT, PE, diabetes, hypertension, lower extremity edema, diverticulosis, dementia, peripheral neuropathy, frequent falls, presented to the ED with complaints of weakness that had been persistent for a few days. She reported she was unable to get out of bed. She called a family friend who then called EMS. She had not eaten or drank in 2 to 3 days as well as not having any bowel movement for the same period of time. Workup in the ED showed constipation and a rectal fecal impaction. She was initiated on a bowel regimen, given IV hydration for her acute kidney injury and dehydration with improvement. She is taking in p.o. She is taking in p.o. She has been working with PT and OT. Their recommendation is for rehab. She has a bed at [facility] today and will be discharged. VITAL SIGNS: At time of discharge, temperature is 97.9 degrees, heart rate 66, respirations 20, blood pressure 152/67, O2 is 97% on room air. DISCHARGE DIET: Diabetic. DISCHARGE MEDICATIONS: 1. Coumadin 5 mg p.o. at bedtime. 2. Cabergoline half a tab p.o. as directed twice a week. 3. Glipizide 10 mg p.o. daily. 4. Januvia 100 mg p.o. daily. 5. Potassium chloride 20 mEq p.o. daily. 6. Quetiapine fumarate 1 dose p.o. as directed, take 1 tab p.o. in a.m. and 2 tablets p.o. at bedtime. 7. Remeron 15 mg p.o. at bedtime. 8. Ferrous sulfate 325 mg p.o. daily. 9. Lasix 40 mg p.o. q.48 hours p.r.n. swelling. 10. Norvasc 10 mg p.o. daily. 11. Zyloprim 100 mg p.o. daily. FOLLOWUP: Ms. Tripathi is being discharged to [facility] in [place] to continue with her physical therapy. She will need to stay adequately hydrated, take all medications as prescribed. She can return to the ED or call 911 for any worsening of symptoms. Dictated by JOHN Bailey for Maurice Ewing MD cc: MD Juan Manuel Silva MD
--- NOTE | 2019-02-28 11:44 | DISCHARGE SUMMARY ---
ADMISSION DATE: 02/23/2019 DISCHARGE DATE: 02/27/2019 Seen day of discharge. She is sitting up in chair. No major complaints. Seems to be doing well. OBJECTIVE: Blood pressure is 136/71, heart rate 65, respiratory rate 20, temperature 98.3 degrees, and 97% on room air. Cardiovascular: Regular rate and rhythm. Pulmonary: Bilateral breath sounds clear to auscultation. GI: Soft, nontender, and nondistended. Bowel sounds are positive. LABORATORY DATA: Creatinine 1.3. INR was 2. DISPOSITION: She was going to be discharged to rehab for further management. Please see accompanying note per Ruthie Ellington. TIME SPENT: 32 minute discharge. We adjusted her medications because of her renal failure including her Lasix and RICHARDSON inhibitor. cc: Maurice Ewing MD
== END 2019-02-27 15:55 | DRG 641 ==
LOC: SUPCPDRO → ED 11:20 → 3N 21:12 → SUATTDRO 21:12
PROVIDERS: ATTEND Internal Medicine